=== PATIENT | female | born 1930 | race Hispanic/Latino ===

== ENCOUNTER 2019-03-24 08:34 | Inpatient (IN) | payer MEDICARE, BC ==
[2019-03-24 08:36] VITALS: BMI 29.2
--- NOTE | 2019-03-24 09:11 | ED PDOC ---
Arrival/HPI - General Chief Complaint: Cough, Cold, Congestion Time Seen by Provider: 03/24/19 08:47 Historian: Family - History of Present Illness Narrative History of Present Illness (Text): 03/24/19 09:12 89 year old female, with a Past medical history of Alzheimer's, and COPD, who presents to the emergency department BIB family complaining of cough since last night. Family reports patient did not sleep last night and was coughing all night. Family endorses nebulizer treatment, twice a day. Family endorses diaphoresis. As per family, at baseline, patient has minimal communication. Family reports patient is complaint with medications, but did not take any medications today. Family denies any fever, shortness of breath, vomiting, diarrhea, or any other somatic complaints Time/Duration: 24 hours Symptom Onset: Gradual Symptom Course: Unchanged Activities at Onset: Light Context: Home Past Medical History - Provider Review Nursing Documentation Reviewed: Yes Primary Care Provider: Moe Ellsworth - Infectious Disease Hx of Infectious Diseases: None - Reproductive Menopause: Yes - Cardiac Hx Cardiac Disorders: No - Pulmonary Hx Respiratory Disorders: Yes Hx Chronic Obstructive Pulmonary Disease (COPD): Yes - Neurological Hx Neurological Disorder: Yes Hx Alzheimer's Disease: Yes - HEENT Hx HEENT Disorder: No - Renal Hx Renal Disorder: No - Endocrine/Metabolic Hx Endocrine Disorders: No - Hematological/Oncological Hx Blood Disorders: No - Integumentary Hx Dermatological Disorder: No - Musculoskeletal/Rheumatological Hx Musculoskeletal Disorders: No - Gastrointestinal Hx Gastrointestinal Disorders: No - Genitourinary/Gynecological Hx Genitourinary Disorders: No - Psychiatric Hx Psychophysiologic Disorder: Yes Hx Depression: Yes Hx Emotional Abuse: No Hx Physical Abuse: No Hx Substance Use: No - Surgical History Other/Comment: knee replacement. hip sx. lumbar sx - Anesthesia Hx Anesthesia: Yes Hx Anesthesia Reactions: No Hx Malignant Hyperthermia: No - Suicidal Assessment Feels Threatened In Home Enviroment: No Family/Social History - Physician Review Nursing Documentation Reviewed: Yes Family/Social History: Unknown Family HX Smoking Status: Never Smoked Hx Alcohol Use: No Hx Substance Use: No Hx Substance Use Treatment: No Allergies/Home Meds Allergies/Adverse Reactions: Allergies No Known Allergies Allergy (Verified 03/24/19 12:10) Home Medications: Home Meds Medication Instructions Recorded Confirmed Ascorbic Acid [Vitamin C] 100 mg PO DAILY 03/24/19 03/24/19 Aspirin [Aspirin Chewable] 81 mg PO DAILY 03/24/19 03/24/19 Beta-Carotene(A)-C,E/Selenium 1 cap PO DAILY 03/24/19 03/24/19 [Antioxidant Softgel] Calcium Phosphate Trib/Vit D3 1 each PO DAILY 03/24/19 03/24/19 [Calcium + Vitamin D3 Gummies] Cyanocobalamin (Vitamin B-12) 2,500 mcg PO DAILY 03/24/19 03/24/19 [Vitamin B12] Divalproex [Depakote Sprinkles] 125 mg PO BID 03/24/19 03/24/19 Donepezil [Aricept] 10 mg PO HS 03/24/19 03/24/19 Escitalopram [Lexapro] 20 mg PO HS 03/24/19 03/24/19 Esomeprazole Magnesium [Nexium] 40 mg PO DAILY 03/24/19 03/24/19 Garlic [Garlic Oil] 1,000 mg PO DAILY 03/24/19 03/24/19 Guaifenesin [Mucinex] 1,200 mg PO DAILY 03/24/19 03/24/19 [place]-3S/Dha/Epa/Fish Oil [Natural 1,200 mg PO DAILY 03/24/19 03/24/19 Fish Oil] QUEtiapine [SEROquel] 25 mg PO HS 03/24/19 03/24/19 Ubidecarenone [Coq-10] 200 mg PO DAILY 03/24/19 03/24/19 Zafirlukast [Accolate] 20 mg PO DAILY 03/24/19 03/24/19 Zafirlukast [Accolate] 20 mg PO HS 03/24/19 03/24/19 traMADol [Ultram] 50 mg PO DAILY 03/24/19 03/24/19 traMADol [Ultram] 50 mg PO HS 03/24/19 03/24/19 traZODone [trazodone Hydrochloride] 100 mg PO HS 03/24/19 03/24/19 Review of Systems - Physician Review All systems were reviewed & negative as marked: Yes - Review of Systems Constitutional: absent: Fevers Respiratory: Cough Gastrointestinal: absent: Vomiting Endocrine: Diaphoresis Physical Exam Vital Signs Reviewed: Yes Vital Signs Temp Pulse Resp BP Pulse Ox 03/24/19 08:35 98.5 F 100 H 18 118/50 L 90 L Temperature: Afebrile Blood Pressure: Normal Pulse: Tachycardic Respiratory Rate: Normal Appearance: Positive for: Well-Appearing, Non-Toxic, Comfortable Pain Distress: None Mental Status: Positive for: Alert and Oriented X 3 - Systems Exam Head: Present: Atraumatic, Normocephalic Pupils: Present: PERRL Extroacular Muscles: Present: EOMI Conjunctiva: Present: Normal Mouth: Present: Moist Mucous Membranes Neck: Present: Normal Range of Motion Respiratory/Chest: Present: Clear to Auscultation, Good Air Exchange. No: Respiratory Distress, Accessory Muscle Use Cardiovascular: Present: Regular Rate and Rhythm, Normal S1, S2. No: Murmurs Abdomen: No: Tenderness, Distention, Peritoneal Signs Back: Present: Normal Inspection Upper Extremity: Present: Normal Inspection. No: Cyanosis, Edema Lower Extremity: Present: Normal Inspection. No: Edema Skin: Present: Warm, Dry, Normal Color. No: Rashes Psychiatric: Present: Alert, Oriented x 3, Normal Insight, Normal Concentration Medical Decision Making ED Course and Treatment: 03/24/19 09:08 Impression: 89 year old female presents to the emergency department BIB family complaining of cough since last night. Plan: -- EKG -- Chest X-ray -- Labs -- vbg -- Albuterol -- Decadron -- Urinalysis -- Influenza AB -- Reassess and disposition Prior Visits: Notes and results from previous visits were reviewed. Progress Notes: 03/24/19 10:[address] Clark, Patient will be admitted for COPD exacerbation. - RAD Interpretation Narrative RAD Interpretations (Text): 03/24/19 09:59 Chest x-ray reviewed by radiologist, shows: No active disease 03/24/19 15:38 CT chest reviewed by radiologist, shows: Small bibasilar infiltrates are seen with peribronchial thickening and air bronchograms. Prominent interstitial markings are also seen. Radiology Orders: 03/24/19 08:55 CHEST PORTABLE [RAD] Stat Employee Communications Specialist: Radiologist - Scribe Statement The provider has reviewed the documentation as recorded by the Scribe Ana Hastings All medical record entries made by the Scribe were at my direction and personally dictated by me. I have reviewed the chart and agree that the record accurately reflects my personal performance of the history, physical exam, medical decision making, and the department course for this patient. I have also personally directed, reviewed, and agree with the discharge instructions and disposition. Disposition/Present on Arrival - Present on Arrival Any Indicators Present on Arrival: No History of DVT/PE: No History of Uncontrolled Diabetes: No Urinary Catheter: No History of Decub. Ulcer: No History Surgical Site Infection Following: None - Disposition Have Diagnosis and Disposition been Completed?: Yes Diagnosis: COPD exacerbation, Pneumonia Disposition: HOSPITALIZED Disposition Time: 10:31 Patient Plan: Admission Condition: GUARDED
[2019-03-24] MEDS ORDERED: Dexamethasone 12 MG in Sodium Chloride 0.9% 50 ML IV ONE (09:30)
[2019-03-24] MEDS ORDERED: Albuterol 0.083% Inhal Sol (2.5 mg/3 mL) UD INH STA ×2 (09:40→09:41)
--- NOTE | 2019-03-24 09:57 | RAD ---
Date of service: 03/24/2019 HISTORY: r/o pneumonia COMPARISON: No prior. TECHNIQUE: 1 view obtained. FINDINGS: LUNGS: No active pulmonary disease. Minimal linear atelectasis at the right lung base PLEURA: No significant pleural effusion identified, no pneumothorax apparent. CARDIOVASCULAR: Aortic calcification Mild cardiomegaly. No pulmonary vascular congestion. OSSEOUS STRUCTURES: No significant abnormalities. VISUALIZED UPPER ABDOMEN: Normal. OTHER FINDINGS: None. IMPRESSION: No active disease.
[2019-03-24 10:01] LABS: BASO # 0.02 K/mm3 (0.0-2.0); BASO % 0.1 % (0.0-3.0); EOS % 0.1 % (1.5-5.0); LYMPH # 2.9 (1.2-3.4); LYMPH % 14.5 % (22.0-35.0); MEAN CELL VOLUME 96.2 fl (80.0-105.0); MEAN CORPUSCULAR HEMOGLOBIN 31.2 pg (25.0-35.0); MEAN CORPUSCULAR HGB CONC 32.4 g/dl (31.0-37.0); MEAN PLATELET VOLUME 9.5 fl (7.0-11.0); MONO # 1.6 (0.1-0.6); MONO % 8.2 % (1.0-6.0); RBC 4.17 10^6/uL (3.5-6.1); RED CELL DISTRIBUTION WIDTH 13.3 % (11.5-14.5)
[2019-03-24 10:01] LABS: VENOUS BLOOD GAS BASE EXCESS 8.3 mmol/L (0.0-2.0); VENOUS BLOOD GAS PO2 49 mm/Hg (30-55); VENOUS BLOOD PH 7.44 (7.32-7.43)
[2019-03-24 10:14] LABS: ALB/GLOB RATIO 1.1 (1.1-1.8); ALBUMIN 3.3 g/dL (3.0-4.8); ALT/SGPT 63 U/L (7-56); GFR NON-AFRICAN AMERICAN > 60
[2019-03-24 10:15] LABS: AST/SGOT 35 U/L (14-36); BLOOD UREA NITROGEN 31 mg/dL (7-21)
[2019-03-24 10:25] LABS: B-TYPE NATRIURETIC PEPTIDE 2690 pg/mL (0-450); TROPONIN I 0.07 ng/mL
[2019-03-24] MEDS ORDERED: cefTRIAXone 1 gm 1 GM/100 ML BAG IVPB STA (10:26)
[2019-03-24] MEDS ORDERED: Albuterol-Ipratrop 3 mg / 0.5 (3 ml) UD IH PRN (10:34)
[2019-03-24] MEDS: cefTRIAXone 1 gm 1 GM/100 ML BAG IVPB STA ×2 (10:40→10:52)
[2019-03-24] MEDS ORDERED: Azithromycin 500MG/NS 250ml 500 MG/250 ML BAG IVPB STA (10:42)
--- NOTE | 2019-03-24 10:47 | CP.PCM.HP ---
<Cristhian Silver - Last Filed: 03/24/19 10:40> History of Present Illness - History of Present Illness History of Present Illness: Cristhian Silver D.O. PGY-3, Internal Medicine Resident, Dr. 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 Patient is mostly nonverbal and most of the history is obtained from her primary medical doctor Dr. Ellsworth who is present at bedside as well as her . [employer] also presents to substantiate history. Patient has been having worsening cough and some shortness of breath for about 1 day and was unable to get any sleep last night from the coughing. They apparently tried given the patient some nebulizers but this did not improve much. Patient having coughing during interview. Appears somewhat uncomfortable. They deny any fevers. Otherwise review of system is unobtainable from patient. PMH: As above PSH: Shoulder surgery, back surgery, bilateral knee replacements next SH: No tobacco or drug use, previous social EtOH use FH: Noncontributory Meds: Reviewed Allergies: No known allergies Present on Admission - Present on Admission Any Indicators Present on Admission: No Review of Systems - Review of Systems Systems not reviewed;Unavailable: Dementia Past Patient History - Infectious Disease Hx of Infectious Diseases: None - Past Social History Smoking Status: Never Smoked - CARDIAC Hx Cardiac Disorders: No - PULMONARY Hx Respiratory Disorders: Yes Hx Chronic Obstructive Pulmonary Disease (COPD): Yes - NEUROLOGICAL Hx Neurological Disorder: Yes Hx Alzheimer's Disease: Yes - HEENT Hx HEENT Problems: No - RENAL Hx Chronic Kidney Disease: No - ENDOCRINE/METABOLIC Hx Endocrine Disorders: No - HEMATOLOGICAL/ONCOLOGICAL Hx Blood Disorders: No - INTEGUMENTARY Hx Dermatological Problems: No - MUSCULOSKELETAL/RHEUMATOLOGICAL Hx Musculoskeletal Disorders: No - GASTROINTESTINAL Hx Gastrointestinal Disorders: No - GENITOURINARY/GYNECOLOGICAL Hx Genitourinary Disorders: No - PSYCHIATRIC Hx Psychophysiologic Disorder: Yes Hx Depression: Yes Hx Emotional Abuse: No Hx Physical Abuse: No Hx Substance Use: No - SURGICAL HISTORY Other/Comment: knee replacement. hip sx. lumbar sx - ANESTHESIA Hx Anesthesia: Yes Hx Anesthesia Reactions: No Hx Malignant Hyperthermia: No Meds Allergies/Adverse Reactions: Allergies Allergy/AdvReac Type Severity Reaction Status Date / Time No Known Allergies Allergy Verified 03/24/19 12:10 Physical Exam - Constitutional Appears: Non-toxic Additional comments: elderly, appears to understand - Head Exam Head Exam: ATRAUMATIC, NORMOCEPHALIC - Eye Exam Eye Exam: EOMI. absent: Scleral icterus - ENT Exam ENT Exam: Mucous Membranes Moist, Normal Oropharynx - Respiratory Exam Respiratory Exam: Wheezes. absent: Rales, Rhonchi - Cardiovascular Exam Cardiovascular Exam: RRR, +S1, +S2. absent: Gallop, Rubs - GI/Abdominal Exam GI & Abdominal Exam: Normal Bowel Sounds, Soft. absent: Distended, Tenderness - Extremities Exam Extremities exam: Positive for: normal capillary refill. Negative for: calf tenderness, pedal edema - Neurological Exam Additional comments: awake, alert, follows simple commands, vocalizes, moves all extremities spon taneously - Psychiatric Exam Psychiatric exam: Anxious - Skin Skin Exam: Dry, Warm Results - Vital Signs Recent Vital Signs: Last Vital Signs Temp 98.5 F 03/24/19 08:35 Pulse 100 H 03/24/19 10:26 Resp 20 03/24/19 10:26 BP 127/47 L 03/24/19 10:26 Pulse Ox 100 03/24/19 10:26 - Labs Result Diagrams: 03/24/19 09:38 03/24/19 09:38 Labs: Laboratory Results - last 24 hr 03/24/19 03/24/19 03/24/19 09:38 09:38 09:38 WBC 20.0 H RBC 4.17 Hgb 13.0 Hct 40.1 MCV 96.2 MCH 31.2 MCHC 32.4 RDW 13.3 Plt Count 215 MPV 9.5 Neut % (Auto) 77.1 H Lymph % (Auto) 14.5 L [place] % (Auto) 8.2 H Eos % (Auto) 0.1 L Baso % (Auto) 0.1 Lymph # (Auto) 2.9 [place] # (Auto) 1.6 H Eos # (Auto) 0.0 Baso # (Auto) 0.02 Absolute Neuts (auto) 15.39 H pO2 VBG pH VBG pCO2 VBG HCO3 VBG Total CO2 VBG O2 Sat (Calc) VBG Base Excess VBG Potassium Glucose Lactate FiO2 Sodium 141 Potassium 4.5 Chloride 109 H Carbon Dioxide 29 Anion Gap 8 L BUN 31 H Creatinine 0.7 Est GFR ( Amer) > 60 Est GFR (Non-Af Amer) > 60 Random Glucose 113 H Calcium 9.0 Magnesium 2.3 H Total Bilirubin 0.6 AST 35 ALT 63 H Alkaline Phosphatase 82 Lactate Dehydrogenase 539 Total Creatine Kinase 73 Troponin I 0.07 NT-Pro-B Natriuret Pep 2690 H Total Protein 6.2 Albumin 3.3 Globulin 3.0 Albumin/Globulin Ratio 1.1 Venous Blood Potassium Influenza Typ A,B (EIA) Negative for flu a/b 03/24/19 09:43 WBC RBC Hgb Hct MCV MCH MCHC RDW Plt Count MPV Neut % (Auto) Lymph % (Auto) [place] % (Auto) Eos % (Auto) Baso % (Auto) Lymph # (Auto) [place] # (Auto) Eos # (Auto) Baso # (Auto) Absolute Neuts (auto) pO2 49 VBG pH 7.44 H VBG pCO2 50.0 VBG HCO3 34.0 H VBG Total CO2 35.5 H VBG O2 Sat (Calc) 83.1 H VBG Base Excess 8.3 H VBG Potassium 5.7 H Glucose 113 H Lactate 1.0 FiO2 21.0 Sodium 141.0 Potassium Chloride 107.0 Carbon Dioxide Anion Gap BUN Creatinine Est GFR ( Amer) Est GFR (Non-Af Amer) Random Glucose Calcium Magnesium Total Bilirubin AST ALT Alkaline Phosphatase Lactate Dehydrogenase Total Creatine Kinase Troponin I NT-Pro-B Natriuret Pep Total Protein Albumin Globulin Albumin/Globulin Ratio Venous Blood Potassium 5.7 H Influenza Typ A,B (EIA) Assessment & Plan - Assessment and Plan (Free Text) Assessment: 89-year-old English female with a past medical history of Alzheimer's dementia, asthma, COPD, GERD, substernal goiter, hyperlipidemia, osteoarthritis, osteoporosis, 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 Plan: 1. SIRS with leukocytosis and tachycardia, likely pulmonary source 2. Alzheimer's dementia 3. Asthma/COPD 4. Osteoarthritis 5. GERD Chest x-ray reviewed. Read as no active disease. 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 Difficult to ascertain whether there could be some consolidations particularly in the right lower lobe. Will order a CT without contrast to better elucidate. Family does state that at times she has issues with pills but they deny any aspiration. There is a still however a concern. We will keep the patient on ceftriaxone and azithromycin for presumed likely community-acquired pneumonia versus aspiration pneumonia. For her cough we will give her Robitussin-DM. For her shortness of breath and cough we will also have the patient on scheduled and as needed nebulizer treatments and solu medrol 20q12. For Alzheimer's dementia we will continue the patient's home trazodone, Seroquel, and Lexapro. For her GERD we will continue PPI therapy that she takes at home. For anxiety we will also continue her alprazolam. Discussed the case with Dr. Ellsworth at bedside, her PMD. Also discussed the case with at bedside. Blood cultures were drawn. VBG did not reveal any lactic acidosis. Patient was seen and examined and case to be discussed with attending physician at length. - Date & Time Date: 03/24/19 Time: 10:00 <Deep Clark S - Last Filed: 03/24/19 12:55> Results - Vital Signs Recent Vital Signs: Last Vital Signs Temp 98.5 F 03/24/19 08:35 Pulse 102 H 03/24/19 11:34 Resp 18 03/24/19 11:34 BP 114/82 03/24/19 11:34 Pulse Ox 97 03/24/19 11:34 - Labs Result Diagrams: 03/24/19 09:38 03/24/19 09:38 Labs: Laboratory Results - last 24 hr 03/24/19 03/24/19 03/24/19 09:38 09:38 09:38 WBC 20.0 H RBC 4.17 Hgb 13.0 Hct 40.1 MCV 96.2 MCH 31.2 MCHC 32.4 RDW 13.3 Plt Count 215 MPV 9.5 Neut % (Auto) 77.1 H Lymph % (Auto) 14.5 L [place] % (Auto) 8.2 H Eos % (Auto) 0.1 L Baso % (Auto) 0.1 Lymph # (Auto) 2.9 [place] # (Auto) 1.6 H Eos # (Auto) 0.0 Baso # (Auto) 0.02 Absolute Neuts (auto) 15.39 H pO2 VBG pH VBG pCO2 VBG HCO3 VBG Total CO2 VBG O2 Sat (Calc) VBG Base Excess VBG Potassium Glucose Lactate FiO2 Sodium 141 Potassium 4.5 Chloride 109 H Carbon Dioxide 29 Anion Gap 8 L BUN 31 H Creatinine 0.7 Est GFR ( Amer) > 60 Est GFR (Non-Af Amer) > 60 Random Glucose 113 H Calcium 9.0 Magnesium 2.3 H Total Bilirubin 0.6 AST 35 ALT 63 H Alkaline Phosphatase 82 Lactate Dehydrogenase 539 Total Creatine Kinase 73 Troponin I 0.07 NT-Pro-B Natriuret Pep 2690 H Total Protein 6.2 Albumin 3.3 Globulin 3.0 Albumin/Globulin Ratio 1.1 Venous Blood Potassium Urine Color Urine Appearance Urine pH Ur Specific [place] Urine Protein Urine Glucose (UA) Urine Ketones Urine Blood Urine Nitrate Urine Bilirubin Urine Urobilinogen Ur Leukocyte Esterase Urine RBC Urine WBC Ur Epithelial Cells Amorphous Sediment Urine Bacteria Coarse Granular Casts Urine Other Influenza Typ A,B (EIA) Negative for flu a/b 03/24/19 03/24/19 09:43 11:57 WBC RBC Hgb Hct MCV MCH MCHC RDW Plt Count MPV Neut % (Auto) Lymph % (Auto) [place] % (Auto) Eos % (Auto) Baso % (Auto) Lymph # (Auto) [place] # (Auto) Eos # (Auto) Baso # (Auto) Absolute Neuts (auto) pO2 49 VBG pH 7.44 H VBG pCO2 50.0 VBG HCO3 34.0 H VBG Total CO2 35.5 H VBG O2 Sat (Calc) 83.1 H VBG Base Excess 8.3 H VBG Potassium 5.7 H Glucose 113 H Lactate 1.0 FiO2 21.0 Sodium 141.0 Potassium Chloride 107.0 Carbon Dioxide Anion Gap BUN Creatinine Est GFR ( Amer) Est GFR (Non-Af Amer) Random Glucose Calcium Magnesium Total Bilirubin AST ALT Alkaline Phosphatase Lactate Dehydrogenase Total Creatine Kinase Troponin I NT-Pro-B Natriuret Pep Total Protein Albumin Globulin Albumin/Globulin Ratio Venous Blood Potassium 5.7 H Urine Color Yellow Urine Appearance Clear Urine pH 6.0 Ur Specific [place] >= 1.030 Urine Protein 30 H Urine Glucose (UA) Negative Urine Ketones 15 H Urine Blood Negative Urine Nitrate Negative Urine Bilirubin Negative Urine Urobilinogen 1.0 H Ur Leukocyte Esterase Trace H Urine RBC 0 - 2 Urine WBC 2 - 5 Ur Epithelial Cells 3 - 4 Amorphous Sediment Few Urine Bacteria Many Coarse Granular Casts Trace Urine Other [place] Influenza Typ A,B (EIA) Assessment & Plan - Assessment and Plan (Free Text) Plan: Pt seen and examined by me. I have reviewed the note of the medical director of hospice and I agree with it. I have discussed the assessment and plan with the resident. I have reviewed the medications and the last labs.
[2019-03-24] MEDS ORDERED: Sodium Chloride 0.9% 500 ML IV STA (10:53)
[2019-03-24 12:17] LABS: URINE BILIRUBIN NEGATIVE (NEGATIVE); URINE BLOOD NEGATIVE (NEGATIVE); URINE GLUCOSE (UA) NEGATIVE (NEGATIVE); URINE LEUKOCYTE ESTERASE TRACE Leu/uL (NEGATIVE); URINE PROTEIN 30 mg/dL (<30 mg/dL)
[2019-03-24 12:19] LABS: URINE APPEARANCE CLEAR (CLEAR); URINE COLOR YELLOW (YELLOW)
[2019-03-24 12:39] LABS: URINE AMORPHOUS SEDIMENT FEW /hpf; URINE BACTERIA MANY /hpf; URINE COARSE GRANULAR CAST TRACE /hpf; URINE RBC 0 - 2 /hpf (0-2)
[2019-03-24] MEDS: Albuterol-Ipratrop 3 mg / 0.5 (3 ml) UD IH SCH ×2 (13:31→19:28)
--- NOTE | 2019-03-24 14:57 | CT ---
Date of service: 03/24/2019 PROCEDURE: CT Chest without contrast HISTORY: cough, known goiter, poss PNA COMPARISON: None available. TECHNIQUE: Contiguous axial images were obtained through the chest without intravenous contrast enhancement. Sagittal and coronal reconstructions were performed. Radiation dose: Total exam DLP = 1735.53 mGy-cm. This CT exam was performed using one or more of the following dose reduction techniques: Automated exposure control, adjustment of the mA and/or kV according to patient size, and/or use of iterative reconstruction technique. FINDINGS: LUNGS: . Small bibasilar infiltrates are seen with peribronchial thickening and air bronchograms.Prominent interstitial markings are also seen. MEDIASTINUM: Unremarkable thoracic aorta. No aneurysm. There is a small pericardial effusion. There is mild cardiomegaly. Main pulmonary artery unremarkable. No vascular congestion. No lymphadenopathy. Aortic and coronary artery calcifications PLEURA: No pleural fluid. No pneumothorax. BONES: No fracture. No destructive lesion. UPPER ABDOMEN: Grossly unremarkable. OTHER FINDINGS: None. IMPRESSION: Small bibasilar infiltrates are seen with peribronchial thickening and air bronchograms. Prominent interstitial markings are also seen.
[2019-03-24] MEDS ORDERED: Pneumococcal 23-Valent Vaccine IM ONE (15:26)
--- NOTE | 2019-03-24 16:52 | HP ---
DATE OF EXAM: 03/24/2019 HISTORY OF PRESENT ILLNESS: The patient was seen and examined. I do agree with the note of the medical facilities section director. I was involved in the plan of care. The patient has having a cough with congestion. She was not able to sleep overnight. She is not able to give a history of because of underlying dementia. Most of the information was taken from the patient's family and Dr. Ellsworth was her primary care doctor. The patient had been given steroids and cough medication. The patient was brought in for further evaluation. She had not been improving. PHYSICAL EXAMINATION: VITAL SIGNS: Temperature is 98.5, pulse 100, respirations 20 and blood pressure 127/47. GENERAL: The patient is lying in bed, comfortable, and in no acute distress. HEENT: Atraumatic and normocephalic. Anicteric sclerae. Moist mucosa. [place] conjunctivae. No oral lesions. NECK: No JVD, anterior and posterior adenopathy, thyromegaly, or bruits. CARDIOVASCULAR: S1 and S2 regular. No murmurs, rubs or gallops. LUNGS: Clear to auscultation bilaterally. No wheezes, rales, or rhonchi. ABDOMEN: Bowel sounds are positive. Soft, nontender and nondistended. No hepatosplenomegaly. No rebound and no guarding. EXTREMITIES: No cyanosis, clubbing, or edema. NEUROLOGIC: The patient can move all four extremities as a limited exam. GENITOURINARY: No CVA tenderness. VASCULAR: 2+ pulses in the carotid pulses and pedal pulses. SKIN: No erythema or nodules. SPINE: Shows normal curvature. LABORATORY DATA: White count of 20. Creatinine 0.7. Chest x-ray reviewed, shows bibasilar patchy air space opacities. ASSESSMENT: 1. Systemic inflammatory response syndrome. 2. Bronchitis. 3. Alzheimer's dementia. 4. Chronic obstructive pulmonary disease. 5. Osteoarthritis. 6. Gastroesophageal reflux disease. 7. Goiter. 8. Dyslipidemia. 9. Meningioma of the right parietal region. 10. Adrenal adenoma. PLAN: The patient is going to be admitted to the hospital. We will replaced on IV antibiotics. I did speak to the patient to the ER physician. The patient has been given Zithromax and Rocephin. The patient is confused and agitated. She is going to be on Aricept for her dementia. She is on trazodone at night to help her sleep. The patient is on Lexapro as well. She has been given IV fluids. The patient had a CT of the chest that has been ordered. We will also get Dr. Trujillo for consultation for her bronchitis and cough. She does also have abnormal chest x-ray, but it is chronic in nature according to Dr. Ellsworth. We will need to repeat her blood work. The patient has a known history of goiter. She also is going to get blood cultures. Deep Clark MD
--- NOTE | 2019-03-24 18:20 | CARD ---
APPROVED REPORT Date of service: 03/24/2019 EKG Measurement Heart [id number] <Conclusion> Sinus rhythm with fusion complexes Low voltage QRS Prolonged QT Abnormal ECG
[2019-03-24] MEDS: guaiFENesin DM 200 mg-20 mg/10 ml UD PO PRN ×2 (18:41→23:27)
[2019-03-24] MEDS: Divalproex 125 mg EC Sprinkle Cap PO SCH (18:41)
[2019-03-25] MEDS: Albuterol-Ipratrop 3 mg / 0.5 (3 ml) UD IH SCH ×4 (01:47→20:55)
[2019-03-25 07:37] LABS: HEMOGLOBIN 13.1 g/dL (12.0-16.0); LYMPH # 2.5 (1.2-3.4); LYMPH % 15.3 % (22.0-35.0); MEAN CELL VOLUME 97.2 fl (80.0-105.0); MEAN CORPUSCULAR HGB CONC 31.9 g/dl (31.0-37.0); MEAN PLATELET VOLUME 9.6 fl (7.0-11.0); MONO # 1.4 (0.1-0.6); MONO % 8.9 % (1.0-6.0); RBC 4.23 10^6/uL (3.5-6.1); RED CELL DISTRIBUTION WIDTH 13.5 % (11.5-14.5); WHITE BLOOD COUNT 16.1 10^3/uL (4.5-11.0)
[2019-03-25 08:00] LABS: ALBUMIN 3.4 g/dL (3.0-4.8); ALT/SGPT 57 U/L (7-56); AST/SGOT 47 U/L (14-36); BLOOD UREA NITROGEN 39 mg/dL (7-21); CALCIUM 8.9 mg/dL (8.4-10.5); GFR NON-AFRICAN AMERICAN > 60
[2019-03-25] MEDS: Enoxaparin 40 mg Syringe SC SCH (09:14)
[2019-03-25] MEDS: cefTRIAXone 1 gm 1 GM/100 ML BAG IVPB SCH (09:15)
[2019-03-25] MEDS: Ascorbic Acid 500 mg/5 ml Liq(50 ml) PO SCH (09:15)
[2019-03-25] MEDS: Pantoprazole 40 mg EC Tab PO SCH (09:18)
[2019-03-25] MEDS: Divalproex 125 mg EC Sprinkle Cap PO SCH ×2 (09:18→17:13)
[2019-03-25] MEDS ORDERED: Azithromycin 500MG/NS 250ml 500 MG/250 ML BAG IVPB SCH ×2 (10:00)
[2019-03-25] MEDS ORDERED: MethylPREDNISolone 40 mg Vial IVP SCH (10:00)
[2019-03-25] MEDS ORDERED: cefTRIAXone 1 gm 1 GM/100 ML BAG IVPB SCH (10:00)
--- NOTE | 2019-03-25 11:21 | CP.PCM.PN ---
<Cristhian Sliver - Last Filed: 03/25/19 11:15> Subjective - Date & Time of Evaluation Date of Evaluation: 03/25/19 Time of Evaluation: 07:30 - Subjective Subjective: Cristhian Silver D.O. PGY-3, Internal Medicine Resident, Dr. 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 Patient was seen and evaluated at bedside. Patient continues to be minimally verbal but appears much more awake, alert and interactive. Asking for water in Serbian. Objective - Vital Signs/Intake and Output Vital Signs (last 24 hours): Temp Pulse Resp BP Pulse Ox 97.4 F L 112 H 18 120/80 96 03/25/19 06:00 03/25/19 06:00 03/25/19 06:00 03/25/19 06:00 03/25/19 06:00 Intake and Output: 03/25/19 03/25/19 06:59 18:59 Intake Total 360 Balance 360 - Medications Medications: Current Medications Albuterol/Ipratropium (Duoneb 3 Mg/0.5 Mg (3 Ml) Ud) 3 ml IH [id number] [facility] Last Admin: 03/25/19 09:39 Dose: 3 ml Albuterol/Ipratropium (Duoneb 3 Mg/0.5 Mg (3 Ml) Ud) 3 ml IH Q2H PRN PRN Reason: Shortness of Breath Alprazolam (Xanax) 0.5 mg PO DAILY [facility] Last Admin: 03/25/19 09:19 Dose: 0.5 mg Ascorbic Acid (Vitamin C Liq) 100 mg PO DAILY [facility] Last Admin: 03/25/19 09:15 Dose: 100 mg Aspirin (Aspirin Chewable) 81 mg PO DAILY [facility] Last Admin: 03/25/19 09:18 Dose: 81 mg Divalproex Sodium (Depakote Sprinkles) 125 mg PO BID [facility]; Protocol Last Admin: 03/25/19 09:18 Dose: 125 mg Donepezil HCl (Aricept) [address] [facility] Last Admin: 03/24/19 21:45 Dose: 10 mg Enoxaparin Sodium (Lovenox) 40 mg SC DAILY [facility]; Protocol Last Admin: 03/25/19 09:14 Dose: 40 mg Escitalopram Oxalate (Lexapro) 10 mg PO DAILY [facility] Last Admin: 03/25/19 09:18 Dose: 10 mg Guaifenesin/Dextromethorphan (Robitussin Dm) 10 ml PO Q4H PRN PRN Reason: Cough Last Admin: 03/24/19 23:27 Dose: 10 ml Ceftriaxone Sodium (Rocephin 1 Gram Ivpb) 1 gm in 100 mls @ 100 mls/hr IVPB DAILY [facility]; Protocol Last Admin: 03/25/19 09:15 Dose: 100 mls/hr Azithromycin (Zithromax 500mg In Ns) 500 mg in 250 mls @ 167 mls/hr IVPB DAILY [facility]; Protocol Last Admin: 03/25/19 09:16 Dose: 167 mls/hr Methylprednisolone (Solu-Medrol) 20 mg IVP Q12 [facility] Last Admin: 03/25/19 09:16 Dose: 20 mg Pantoprazole Sodium (Protonix Ec Tab) 40 mg PO 0630 [facility] Last Admin: 03/25/19 09:18 Dose: 40 mg Quetiapine Fumarate (Seroquel) 25 mg PO BID [facility]; Protocol Last Admin: 03/25/19 09:18 Dose: 25 mg Tramadol HCl (Ultram) 50 mg PO DAILY [facility] Last Admin: 03/25/19 09:18 Dose: 50 mg Tramadol HCl (Ultram) [address] [facility] Last Admin: 03/24/19 21:45 Dose: 50 mg Trazodone HCl (Desyrel) [address] [facility] Last Admin: 03/24/19 21:45 Dose: 50 mg - Labs Labs: 03/25/19 06:00 03/25/19 06:00 - Constitutional Appears: elderly Serbian female in NAD - Head Exam Head Exam: ATRAUMATIC, NORMOCEPHALIC - Eye Exam Eye Exam: EOMI. absent: Scleral icterus - ENT Exam ENT Exam: Mucous Membranes Moist, Normal Oropharynx - Respiratory Exam Respiratory Exam: mild wheezing, mild right base rhonchi - Cardiovascular Exam Cardiovascular Exam: +S1, +S2. absent: Gallop, Rubs - GI/Abdominal Exam GI & Abdominal Exam: Normal Bowel Sounds, Soft. absent: Distended, Tenderness - Extremities Exam Extremities exam: Positive for: normal capillary refill. Negative for: calf tenderness, pedal edema - Neurological Exam Additional comments: awake, alert, follows simple commands - Skin Skin Exam: Dry, Warm Assessment and Plan - Assessment and Plan (Free Text) Assessment: 89-year-old Serbian female with a past medical history of Alzheimer's dementia, asthma, COPD, GERD, substernal goiter, hyperlipidemia, osteoarthritis, osteoporosis, meningioma in the right parietal region, adrenal adenomas, and bilateral knee replacements who presents for complaints of cough, found to have pneumonia. Plan: 1. Sepsis 2/2 CAP 2. Alzheimer's dementia 3. Asthma/COPD 4. Osteoarthritis 5. GERD CT was performed to better elucidate given her chest x-ray findings and show small bibasilar infiltrates which are seen with peribronchial thickening and air bronchograms, are prominent and suspicion markings are also seen. Patient's leukocytosis is downtrending. She has not had any fevers. She continues on azithromycin and ceftriaxone. For her dementia and anxiety the patient is currently doing well on her home regimen of alprazolam, divalproex, donepezil, Lexapro, Seroquel, and trazodone for sleep. For her respiratory symptoms she is currently on Solu-Medrol 20 every 12 which we will switch to 20 daily. Clinically the patient appears much better. Pending pulmonology evaluation. Infectious disease will also be consulted for this patient now. For osteoarthritis her pain appears to be well controlled on her home regimen of tramadol in the morning and at night. For history of GERD we continued her home PPI therapy. For her cough we have also added Robitussin-DM. For DVT prophylaxis we will give the patient Lovenox 40. Blood cultures have returned 2/2 on day 1. We will continue to monitor clinical status closely. Patient was seen and examined and case to be discussed with attending physician at length. <Deep Clark - Last Filed: 03/25/19 16:07> Objective - Vital Signs/Intake and Output Vital Signs (last 24 hours): Temp Pulse Resp BP Pulse Ox 98 F 103 H 20 105/70 97 03/25/19 14:00 03/25/19 14:00 03/25/19 14:00 03/25/19 14:00 03/25/19 14:00 Intake and Output: 03/25/19 03/25/19 06:59 18:59 Intake Total 360 Balance 360 - Medications Medications: Current Medications Albuterol/Ipratropium (Duoneb 3 Mg/0.5 Mg (3 Ml) Ud) 3 ml IH [id number] [facility] Last Admin: 03/25/19 13:49 Dose: 3 ml Albuterol/Ipratropium (Duoneb 3 Mg/0.5 Mg (3 Ml) Ud) 3 ml IH Q2H PRN PRN Reason: Shortness of Breath Alprazolam (Xanax) 0.5 mg PO DAILY [facility] Last Admin: 03/25/19 09:19 Dose: 0.5 mg Ascorbic Acid (Vitamin C Liq) 100 mg PO DAILY [facility] Last Admin: 03/25/19 09:15 Dose: 100 mg Aspirin (Aspirin Chewable) 81 mg PO DAILY [facility] Last Admin: 03/25/19 09:18 Dose: 81 mg Divalproex Sodium (Depakote Sprinkles) 125 mg PO BID [facility]; Protocol Last Admin: 03/25/19 09:18 Dose: 125 mg Donepezil HCl (Aricept) 10 mg PO HS [facility] Last Admin: 03/24/19 21:45 Dose: 10 mg Doxycycline Hyclate (Doryx) 100 mg PO Q12 [facility]; Protocol Stop: 03/30/19 22:01 Enoxaparin Sodium (Lovenox) 40 mg SC DAILY [facility]; Protocol Last Admin: 03/25/19 09:14 Dose: 40 mg Escitalopram Oxalate (Lexapro) 10 mg PO DAILY [facility] Last Admin: 03/25/19 09:18 Dose: 10 mg Guaifenesin/Dextromethorphan (Robitussin Dm) 10 ml PO Q4H PRN PRN Reason: Cough Last Admin: 03/25/19 13:12 Dose: 10 ml Ceftriaxone Sodium (Rocephin 1 Gram Ivpb) 1 gm in 100 mls @ 100 mls/hr IVPB DAILY [facility]; Protocol Last Admin: 03/25/19 09:15 Dose: 100 mls/hr Methylprednisolone (Solu-Medrol) 20 mg IVP DAILY [facility] Pantoprazole Sodium (Protonix Ec Tab) 40 mg PO 0630 [facility] Last Admin: 03/25/19 09:18 Dose: 40 mg Quetiapine Fumarate (Seroquel) 25 mg PO BID [facility]; Protocol Last Admin: 03/25/19 09:18 Dose: 25 mg Tramadol HCl (Ultram) 50 mg PO DAILY [facility] Last Admin: 03/25/19 09:18 Dose: 50 mg Tramadol HCl (Ultram) 50 mg PO HS [facility] Last Admin: 03/24/19 21:45 Dose: 50 mg Trazodone HCl (Desyrel) 50 mg PO HS [facility] Last Admin: 03/24/19 21:45 Dose: 50 mg - Labs Labs: 03/25/19 06:00 03/25/19 06:00 Assessment and Plan - Assessment and Plan (Free Text) Plan: Pt seen and examined by me. I have reviewed the note of the medical receptionist medical assistant and I agree with it. I have discussed the assessment and plan with the resident. I have reviewed the medications and the last labs.
[2019-03-25] MEDS: guaiFENesin DM 200 mg-20 mg/10 ml UD PO PRN ×2 (13:12→21:26)
--- NOTE | 2019-03-25 19:26 | PN ---
DATE: 03/25/2019 SUBJECTIVE: The patient was seen and examined. I do agree with the note of the medical staff credentialing coordinator. I was involved in the plan of care. The patient has been admitted to the hospital because of sepsis. She has been on IV antibiotics with Rocephin and Zithromax. Her white cell count is improving. The patient had a scan that showed bibasilar infiltrates. The patient most likely has a community acquired pneumonia causing the sepsis. She does have dementia and she had delirium yesterday, this is improving. She is more awake and alert and able to answer questions. I did speak to Dr. Ellsworth, who was at the bedside, which is the primary doctor of this patient. I also spoke with the patient's son at bedside later on today. The patient is on Solu-Medrol, a low dose. She is on Lovenox for DVT prophylaxis. Physical therapy has been ordered. The patient has blood cultures that were done. Blood cultures preliminary are negative. She is also going to be followed by Dr. Mahmood from Infectious Disease, I did speak to him about the case. The patent is currently on aspirin. She will continue on this. She is on Aricept for her dementia. She is receiving Depakote, this will be continued as well. She is on Lexapro for her depression. She is on Protonix for her GERD. She has urine cultures that are pending. Deep Clark MD
[2019-03-26] MEDS: Albuterol-Ipratrop 3 mg / 0.5 (3 ml) UD IH SCH ×4 (02:33→20:10)
[2019-03-26] MEDS: guaiFENesin DM 200 mg-20 mg/10 ml UD PO PRN ×3 (05:07→21:34)
[2019-03-26] MEDS: Pantoprazole 40 mg EC Tab PO SCH (06:56)
--- NOTE | 2019-03-26 08:07 | CP.PCM.PN ---
<Cristhian Silver - Last Filed: 03/26/19 10:26> Subjective - Date & Time of Evaluation Date of Evaluation: 03/26/19 Time of Evaluation: 05:00 - Subjective Subjective: Cristhian Silver D.O. PGY-3, Internal Medicine Resident, Dr. Clark's Service, Progress Note 89-year-old [place]ar[place] female with a past medical history of Alzheimer's dementia, asthma, COPD, GERD, substernal goiter, hyperlipidemia, osteoarthritis, osteoporosis, meningioma in the right parietal region, adrenal adenomas, and bilateral knee replacements who presents for complaints of cough, found to have pneumonia. Patient was seen and evaluated at bedside. Appears comfortable. No acute overnight events. Objective - Vital Signs/Intake and Output Vital Signs (last 24 hours): Temp Pulse Resp BP Pulse Ox 98.4 F 93 H 18 127/82 97 03/26/19 06:00 03/26/19 06:00 03/26/19 06:00 03/26/19 06:00 03/26/19 06:00 - Medications Medications: Current Medications Albuterol/Ipratropium (Duoneb 3 Mg/0.5 Mg (3 Ml) Ud) 3 ml IH [id number] [facility] Last Admin: 03/26/19 07:44 Dose: 3 ml Albuterol/Ipratropium (Duoneb 3 Mg/0.5 Mg (3 Ml) Ud) 3 ml IH Q2H PRN PRN Reason: Shortness of Breath Alprazolam (Xanax) 0.5 mg PO DAILY [facility] Last Admin: 03/25/19 09:19 Dose: 0.5 mg Ascorbic Acid (Vitamin C Liq) 100 mg PO DAILY [facility] Last Admin: 03/25/19 09:15 Dose: 100 mg Aspirin (Aspirin Chewable) 81 mg PO DAILY [facility] Last Admin: 03/25/19 09:18 Dose: 81 mg Divalproex Sodium (Depakote Sprinkles) 125 mg PO BID [facility]; Protocol Last Admin: 03/25/19 17:13 Dose: 125 mg Donepezil HCl (Aricept) 10 mg PO HS [facility] Last Admin: 03/25/19 21:25 Dose: 10 mg Doxycycline Hyclate (Doryx) 100 mg PO Q12 [facility]; Protocol Stop: 03/30/19 22:01 Last Admin: 03/25/19 21:25 Dose: 100 mg Enoxaparin Sodium (Lovenox) 40 mg SC DAILY [facility]; Protocol Last Admin: 03/25/19 09:14 Dose: 40 mg Escitalopram Oxalate (Lexapro) 10 mg PO DAILY [facility] Last Admin: 03/25/19 09:18 Dose: 10 mg Guaifenesin/Dextromethorphan (Robitussin Dm) 10 ml PO Q4H PRN PRN Reason: Cough Last Admin: 03/26/19 05:07 Dose: 10 ml Ceftriaxone Sodium (Rocephin 1 Gram Ivpb) 1 gm in 100 mls @ 100 mls/hr IVPB DAILY [facility]; Protocol Last Admin: 03/25/19 09:15 Dose: 100 mls/hr Methylprednisolone (Solu-Medrol) 20 mg IVP DAILY [facility] Pantoprazole Sodium (Protonix Susp) 40 mg PO 0600 [facility] Quetiapine Fumarate (Seroquel) 25 mg PO BID [facility]; Protocol Last Admin: 03/25/19 17:13 Dose: 25 mg Tramadol HCl (Ultram) 50 mg PO DAILY [facility] Last Admin: 03/25/19 09:18 Dose: 50 mg Tramadol HCl (Ultram) 50 mg PO HS [facility] Last Admin: 03/25/19 21:24 Dose: 50 mg Trazodone HCl (Desyrel) 50 mg PO HS [facility] Last Admin: 03/25/19 21:25 Dose: 50 mg - Labs Labs: 03/25/19 06:00 03/25/19 06:00 - Constitutional Appears: elderly [place]arag[place] female in NAD - Head Exam Head Exam: ATRAUMATIC, NORMOCEPHALIC - Eye Exam Eye Exam: EOMI. absent: Scleral icterus - ENT Exam ENT Exam: Mucous Membranes Moist, Normal Oropharynx - Respiratory Exam Respiratory Exam: mild wheezing, mild right base rhonchi - Cardiovascular Exam Cardiovascular Exam: +S1, +S2. absent: Gallop, Rubs - GI/Abdominal Exam GI & Abdominal Exam: Normal Bowel Sounds, Soft. absent: Distended, Tenderness - Extremities Exam Extremities exam: Positive for: normal capillary refill. Negative for: calf tenderness, pedal edema - Neurological Exam Additional comments: awake, alert, follows simple commands - Skin Skin Exam: Dry, Warm Assessment and Plan - Assessment and Plan (Free Text) Assessment: 89-year-old [place] female with a past medical history of Alzheimer's dementia, asthma, COPD, GERD, substernal goiter, hyperlipidemia, osteoarthritis, osteoporosis, meningioma in the right parietal region, adrenal adenomas, and bilateral knee replacements who presents for complaints of cough, found to have sepsis from pneumonia. Plan: 1. Sepsis 2/2 CAP 2. Alzheimer's dementia 3. Asthma/COPD 4. Osteoarthritis 5. GERD Clinically improving. Infectious disease was consulted, the recommendations are appreciated. Azithromycin was discontinued and patient is now on ceftriaxone and doxycycline per ID recs. Has been afebrile. Blood cultures / day 1. Sputum culture and Legionella antigen ordered by ID pending. Procal came back low. ID has also ordered an abdomen and pelvis CAT scan to make sure that there is no GI pathology. For her dementia and anxiety patient is continued on her home alprazolam, donepezil, Lexapro, divalproex, Seroquel, and trazodone. Patient will be switched to prednisone from IV Solu-Medrol. Pulmonology has been consulted. For osteoarthritis she appears to be comfortable on her home tramadol. For her GERD she is currently on Protonix. Cough is well controlled with Robitussin-DM. For DVT prophylaxis the patient is on Lovenox 40. PT has been consulted, recommendations for ZOFIA. Will discuss with CM/SW upon their return. Continue to monitor clinical improvement. Patient was seen and examined and case was discussed with attending physician at length. <Deep Clark - Last Filed: 03/26/19 14:28> Objective - Vital Signs/Intake and Output Vital Signs (last 24 hours): Temp Pulse Resp BP Pulse Ox 98.0 F 112 H 18 146/86 97 03/26/19 14:00 03/26/19 14:00 03/26/19 14:00 03/26/19 14:00 03/26/19 14:00 - Medications Medications: Current Medications Albuterol/Ipratropium (Duoneb 3 Mg/0.5 Mg (3 Ml) Ud) 3 ml IH [id number] [facility] Last Admin: 03/26/19 07:44 Dose: 3 ml Albuterol/Ipratropium (Duoneb 3 Mg/0.5 Mg (3 Ml) Ud) 3 ml IH Q2H PRN PRN Reason: Shortness of Breath Alprazolam (Xanax) 0.5 mg PO DAILY [facility] Last Admin: 03/26/19 09:06 Dose: 0.5 mg Ascorbic Acid (Vitamin C Liq) 100 mg PO DAILY [facility] Last Admin: 03/25/19 09:15 Dose: 100 mg Aspirin (Aspirin Chewable) 81 mg PO DAILY [facility] Last Admin: 03/26/19 09:06 Dose: 81 mg Divalproex Sodium (Depakote Sprinkles) 125 mg PO BID [facility]; Protocol Last Admin: 03/26/19 09:06 Dose: 125 mg Donepezil HCl (Aricept) 10 mg PO HS [facility] Last Admin: 03/25/19 21:25 Dose: 10 mg Doxycycline Hyclate (Doryx) 100 mg PO Q12 [facility]; Protocol Stop: 03/30/19 22:01 Last Admin: 03/26/19 09:06 Dose: 100 mg Enoxaparin Sodium (Lovenox) 40 mg SC DAILY [facility]; Protocol Last Admin: 03/26/19 09:05 Dose: 40 mg Escitalopram Oxalate (Lexapro) 10 mg PO DAILY [facility] Last Admin: 03/26/19 09:06 Dose: 10 mg Guaifenesin/Dextromethorphan (Robitussin Dm) 10 ml PO Q4H PRN PRN Reason: Cough Last Admin: 03/26/19 05:07 Dose: 10 ml Ceftriaxone Sodium (Rocephin 1 Gram Ivpb) 1 gm in 100 mls @ 100 mls/hr IVPB DAILY [facility]; Protocol Last Admin: 03/26/19 09:05 Dose: 100 mls/hr Metronidazole (Flagyl) 500 mg PO Q8 [facility]; Protocol Stop: 04/03/19 14:01 Last Admin: 03/26/19 14:20 Dose: 500 mg Pantoprazole Sodium (Protonix Susp) 40 mg PO 0600 [facility] Prednisone (Prednisone Tab) 20 mg PO DAILY [facility] Quetiapine Fumarate (Seroquel) 25 mg PO BID [facility]; Protocol Last Admin: 03/26/19 09:07 Dose: 25 mg Tramadol HCl (Ultram) 50 mg PO DAILY [facility] Last Admin: 03/26/19 09:05 Dose: 50 mg Tramadol HCl (Ultram) 50 mg PO HS [facility] Last Admin: 03/25/19 21:24 Dose: 50 mg Trazodone HCl (Desyrel) 50 mg PO HS [facility] Last Admin: 03/25/19 21:25 Dose: 50 mg - Labs Labs: 03/26/19 10:40 03/25/19 06:00 Assessment and Plan - Assessment and Plan (Free Text) Plan: Pt seen and examined by me. I have reviewed the note of the medical technologist prn and I agree with it. I have discussed the assessment and plan with the resident. I have reviewed the medications and the last labs.
[2019-03-26] MEDS ORDERED: Barium Sulfate Susp 2.1% w/v, 2.0% w/w 450 mL Bottle PO ONE (08:53)
[2019-03-26] MEDS: cefTRIAXone 1 gm 1 GM/100 ML BAG IVPB SCH (09:05)
[2019-03-26] MEDS: Enoxaparin 40 mg Syringe SC SCH (09:05)
[2019-03-26] MEDS: Divalproex 125 mg EC Sprinkle Cap PO SCH ×2 (09:06→17:14)
[2019-03-26] MEDS: Ascorbic Acid 500 mg/5 ml Liq(50 ml) PO SCH (09:21)
[2019-03-26] MEDS ORDERED: MethylPREDNISolone 40 mg Vial IVP SCH (10:00)
[2019-03-26 10:53] LABS: HEMOGLOBIN 12.6 g/dL (12.0-16.0); MEAN CELL VOLUME 99.2 fl (80.0-105.0); MEAN CORPUSCULAR HGB CONC 32.2 g/dl (31.0-37.0); MEAN PLATELET VOLUME 9.6 fl (7.0-11.0); RBC 3.94 10^6/uL (3.5-6.1); RED CELL DISTRIBUTION WIDTH 13.6 % (11.5-14.5); WHITE BLOOD COUNT 15.5 10^3/uL (4.5-11.0)
--- NOTE | 2019-03-26 13:57 | CT ---
Date of service: 03/26/2019 PROCEDURE: CT Abdomen and Pelvis without intravenous contrast HISTORY: r/o gi path COMPARISON: None. TECHNIQUE: Contiguous images were obtained from the domes of the diaphragms to the upper thighs without the administration of intravenous contrast. Oral contrast was not administered. Radiation dose: Total exam DLP = 942.5 mGy-cm. This CT exam was performed using one or more of the following dose reduction techniques: Automated exposure control, adjustment of the mA and/or kV according to patient size, and/or use of iterative reconstruction technique. FINDINGS: LOWER THORAX: Left lower lobe consolidation. Trace bilateral pleural effusions. LIVER: Unremarkable. No gross lesion or ductal dilatation. GALLBLADDER AND BILE DUCTS: Unremarkable. PANCREAS: Unremarkable. No gross lesion or ductal dilatation. SPLEEN: Unremarkable. ADRENALS: Unremarkable. No mass. KIDNEYS AND URETERS: 4.1 cm right upper pole cyst. 2.1 cm left interpolar cyst. No hydronephrosis. No solid mass. VASCULATURE: Unremarkable. No aortic aneurysm. Aortic atherosclerotic calcifications. BOWEL: Prominent amount of retained colonic stool. No obstruction. No gross mural thickening. APPENDIX: No findings to suggest acute appendicitis. PERITONEUM: Unremarkable. No free fluid. No free air. LYMPH NODES: Unremarkable. No enlarged lymph nodes. BLADDER: Unremarkable. REPRODUCTIVE: Unremarkable. BONES: Prior L2 and L3 vertebral augmentation. Multilevel spinal degenerative changes. Age-indeterminate compression fracture of L4 and T11.. OTHER FINDINGS: None. IMPRESSION: Age-indeterminate vertebral compression fractures of T11 and L4. Prominent amount of retained colonic stool. Left lower lobe infiltrate. Trace bilateral pleural effusions.
--- NOTE | 2019-03-26 14:45 | PN ---
DATE: 03/26/2019 SUBJECTIVE: The patient is in seen earlier today. She appears to be doing better. Her family is here and Dr. Ellsworth, the patient's primary doctor in the office setting is also there. Dr. Velasquez, the patient's doctor in the hospital setting is also here. There have been no fevers reported. PHYSICAL EXAMINATION: VITAL SIGNS: Temperature is 98, heart rate of 103, blood pressure is 113/60, respiratory rate of 20. HEENT: Unremarkable. NECK: Supple. LUNGS: Have decreased breath sounds. HEART: Normal S1, S2. ABDOMEN: Soft, nontender. LABORATORY DATA: Laboratory examination reveals a white count is down to 15,500, hemoglobin of 12. Chemistries are noted. Procalcitonin 0.07, AST is 47, ALT of 57. The BNP is 2690. Urinalysis is noted. Serology is noted. Influenza blood cultures are negative. Urine cultures are negative. ASSESSMENT AND PLAN: This is an 89-year-old female who is admitted with history of Alzheimer's dementia, asthma, chronic obstructive pulmonary disease, gastroesophageal reflux disease with sepsis secondary to community-acquired pneumonia. I am concerned about GI pathology with a white count of 20,000. We will order a CAT scan of the abdomen and pelvis to rule out diverticular disease and we will continue with the cefepime. We will add Flagyl and continue doxycycline with the Flagyl. The patient is now on prednisone. Initially upon admission, the patient was not on steroids and still had a white count of 20,000. I reviewed the CAT scan of the chest. I do not feel this CAT scan has enough of pneumonia to explain the 20,000 white count. We will check on the CT of the abdomen and pelvis. We will follow with you. Kip Mahmood MD
[2019-03-26] MEDS: POLYETHYLENE GLYCOL 3350 17 GM/Dose PACKET PO SCH (17:14)
--- NOTE | 2019-03-26 19:30 | PN ---
DATE: 03/26/2019 SUBJECTIVE: The patient was seen and examined. I do agree with the note of the medical office professional instructor. I was involved in the plan of care. The patient is clinically improving. Her procalcitonin level is low. The patient has sepsis secondary to community-acquired pneumonia. She had a CT of the abdomen and pelvis that was done that showed a left lower lobe infiltrate. There was age-related indeterminate vertebral compression fracture at T11 and L4. She had a prominent amount of retained stool. The patient is being treated with IV antibiotics. She is going to be on donepezil for her dementia. She is on steroids for her asthma. She is on Lovenox for DVT prophylaxis. She has osteoarthritis and currently her pain is controlled. I did speak to Dr. Ellsworth, her primary care doctor. I also spoke with the patient's son at the bedside to give him an update on the patient's diagnosis and plan of care. The patient is currently on doxycycline, has Flagyl that has been added. I did speak to the infectious disease doctor, Dr. Mahmood. The patient is on Lovenox for DVT prophylaxis. The patient is on tramadol for pain. She is getting Xanax for agitation. Her delirium has improved from when she first came into the ER. She has blood cultures and urine cultures that are negative. The patient has a compression fracture of L4 and T11. She also has constipation. I will add MiraLax to her regimen. Deep Clark MD
[2019-03-27] MEDS: Albuterol-Ipratrop 3 mg / 0.5 (3 ml) UD IH SCH ×4 (02:30→20:10)
[2019-03-27] MEDS: Pantoprazole 40 mg Susp UD PO SCH (05:36)
[2019-03-27 07:08] LABS: BASO # 0.01 K/mm3 (0.0-2.0); BASO % 0.1 % (0.0-3.0); EOS # 0.1 (0.0-0.7); EOS % 0.7 % (1.5-5.0); HEMOGLOBIN 11.4 g/dL (12.0-16.0); LYMPH # 2.8 (1.2-3.4); LYMPH % 26.7 % (22.0-35.0); MEAN CELL VOLUME 97.6 fl (80.0-105.0); MEAN CORPUSCULAR HEMOGLOBIN 30.3 pg (25.0-35.0); MEAN CORPUSCULAR HGB CONC 31.1 g/dl (31.0-37.0); MEAN PLATELET VOLUME 9.5 fl (7.0-11.0); MONO # 1.1 (0.1-0.6); MONO % 10.3 % (1.0-6.0); RBC 3.76 10^6/uL (3.5-6.1); RED CELL DISTRIBUTION WIDTH 13.5 % (11.5-14.5); WHITE BLOOD COUNT 10.5 10^3/uL (4.5-11.0)
[2019-03-27 07:53] LABS: ALB/GLOB RATIO 0.9 (1.1-1.8); ALBUMIN 2.9 g/dL (3.0-4.8); ALT/SGPT 41 U/L (7-56); AST/SGOT 36 U/L (14-36); BLOOD UREA NITROGEN 31 mg/dL (7-21); CALCIUM 8.5 mg/dL (8.4-10.5); GFR NON-AFRICAN AMERICAN > 60
[2019-03-27] MEDS: cefTRIAXone 1 gm 1 GM/100 ML BAG IVPB SCH (09:20)
[2019-03-27] MEDS: POLYETHYLENE GLYCOL 3350 17 GM/Dose PACKET PO SCH ×2 (09:21→17:25)
[2019-03-27] MEDS: Enoxaparin 40 mg Syringe SC SCH (09:21)
[2019-03-27] MEDS: Ascorbic Acid 500 mg/5 ml Liq(50 ml) PO SCH (09:22)
[2019-03-27] MEDS: Divalproex 125 mg EC Sprinkle Cap PO SCH ×2 (09:23→17:25)
--- NOTE | 2019-03-27 10:11 | PN ---
DATE: 03/27/2019 SUBJECTIVE: The patient is seen earlier this morning in room 561, bed 1. She is at her baseline now. She is afebrile. PHYSICAL EXAMINATION: VITAL SIGNS: On exam, temperature is 97, blood pressure is 140/80, respiratory rate of 20. HEENT: Unremarkable. NECK: Supple. HEART: Normal S1, S2. LUNGS: Have decreased breath sounds. ABDOMEN: Soft and nontender. LABORATORY DATA: Reveals a white count of 10,000, hemoglobin of 11, platelets of 219. Chemistries reveals a BUN of 31, creatinine of 0.6. Procalcitonin 0.07. Urinalysis is noted. Serology is noted. CT of the abdomen and pelvis is reviewed. EKG shows a QTc of 505. The patient's procalcitonin is negative. CURRENT MEDICATIONS: Reveals the patient to be on doxycycline. Since the CAT scan of the abdomen and pelvis is negative, we will discontinue the Flagyl. The patient is also on prednisone and the patient is also on ceftriaxone. Blood cultures are negative. Urine cultures are negative. ASSESSMENT AND PLAN: This is an 89-year-old female admitted with sepsis with community-acquired pneumonia which is resolved and upon discharge may discontinue the ceftriaxone and complete 5 to 7 days of p.o. doxycycline. Currently day #3 of antibiotics. The patient's QTc is over quinolone. Kip Mahmood MD
[2019-03-27] MEDS: guaiFENesin DM 200 mg-20 mg/10 ml UD PO PRN ×2 (10:18→17:25)
--- NOTE | 2019-03-27 12:38 | CP.PCM.PN ---
<Cristhian Silver - Last Filed: 03/27/19 12:32> Subjective - Date & Time of Evaluation Date of Evaluation: 03/27/19 Time of Evaluation: 07:50 - Subjective Subjective: Cristhian Silver D.O. PGY-3, Internal Medicine Resident, Dr. 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 Patient was seen and evaluated at bedside with multiple family members and PMD present. She is mostly nonverbal but appears at her baseline. Responsive and appears improved. Objective - Vital Signs/Intake and Output Vital Signs (last 24 hours): Temp Pulse Resp BP Pulse Ox 98.2 F 83 18 138/70 95 03/27/19 06:00 03/27/19 06:00 03/27/19 06:00 03/27/19 06:00 03/27/19 06:00 - Medications Medications: Current Medications Albuterol/Ipratropium (Duoneb 3 Mg/0.5 Mg (3 Ml) Ud) 3 ml IH [id number] [facility] Last Admin: 03/27/19 07:15 Dose: 3 ml Albuterol/Ipratropium (Duoneb 3 Mg/0.5 Mg (3 Ml) Ud) 3 ml IH Q2H PRN PRN Reason: Shortness of Breath Alprazolam (Xanax) 0.5 mg PO DAILY [facility] Last Admin: 03/27/19 09:23 Dose: 0.5 mg Ascorbic Acid (Vitamin C Liq) 100 mg PO DAILY [facility] Last Admin: 03/27/19 09:22 Dose: 100 mg Aspirin (Aspirin Chewable) 81 mg PO DAILY [facility] Last Admin: 03/27/19 09:23 Dose: 81 mg Divalproex Sodium (Depakote Sprinkles) 125 mg PO BID [facility]; Protocol Last Admin: 03/27/19 09:23 Dose: 125 mg Donepezil HCl (Aricept) 10 mg PO HS [facility] Last Admin: 03/26/19 21:32 Dose: 10 mg Doxycycline Hyclate (Doryx) 100 mg PO Q12 [facility]; Protocol Stop: 03/30/19 22:01 Last Admin: 03/27/19 09:22 Dose: 100 mg Enoxaparin Sodium (Lovenox) 40 mg SC DAILY [facility]; Protocol Last Admin: 03/27/19 09:21 Dose: 40 mg Escitalopram Oxalate (Lexapro) 10 mg PO DAILY [facility] Last Admin: 03/27/19 09:21 Dose: 10 mg Guaifenesin/Dextromethorphan (Robitussin Dm) 10 ml PO Q4H PRN PRN Reason: Cough Last Admin: 03/27/19 10:18 Dose: 10 ml Ceftriaxone Sodium (Rocephin 1 Gram Ivpb) 1 gm in 100 mls @ 100 mls/hr IVPB DAILY [facility]; Protocol Last Admin: 03/27/19 09:20 Dose: 100 mls/hr Pantoprazole Sodium (Protonix Susp) 40 mg PO 0600 [facility] Last Admin: 03/27/19 05:36 Dose: 40 mg Polyethylene Glycol (Miralax) 17 gm PO BID [facility] Last Admin: 03/27/19 09:21 Dose: 17 gm Quetiapine Fumarate (Seroquel) 25 mg PO BID [facility]; Protocol Last Admin: 03/27/19 09:22 Dose: 25 mg Tramadol HCl (Ultram) 50 mg PO DAILY [facility] Last Admin: 03/27/19 09:22 Dose: 50 mg Tramadol HCl (Ultram) 50 mg PO [facility] Last Admin: 03/26/19 21:31 Dose: 50 mg Trazodone HCl (Desyrel) 50 mg PO [facility] Last Admin: 03/26/19 21:31 Dose: 50 mg - Labs Labs: 03/27/19 06:00 03/27/19 06:00 - Constitutional Appears: elderly [place] female in [facility] surrounded by family members - Head Exam Head Exam: ATRAUMATIC, NORMOCEPHALIC - Eye Exam Eye Exam: EOMI. absent: Scleral icterus - ENT Exam ENT Exam: Mucous Membranes Moist, Normal Oropharynx - Respiratory Exam Respiratory Exam: mild right base rhonchi, no wheezing - Cardiovascular Exam Cardiovascular Exam: +S1, +S2. absent: Gallop, Rubs - GI/Abdominal Exam GI & Abdominal Exam: Normal Bowel Sounds, Soft. absent: Distended, Tenderness - Extremities Exam Extremities exam: Positive for: normal capillary refill. Negative for: calf tenderness, pedal edema - Neurological Exam Additional comments: awake, alert, follows simple commands, seems more responsive when spoken to in [place] - Skin Skin Exam: Dry, Warm Assessment and Plan - Assessment and Plan (Free Text) Assessment: 89-year-old [place] female with a past medical history of Alzheimer's dementia, asthma, COPD, GERD, substernal goiter, hyperlipidemia, osteoarthritis, osteoporosis, meningioma in the right parietal region, adrenal adenomas, and bilateral knee replacements who presents for complaints of cough, found to have sepsis from pneumonia. Plan: 1. Sepsis 2/2 CAP 2. Alzheimer's dementia 3. Asthma/COPD 4. Osteoarthritis 5. GERD Currently on day 3 of ceftriaxone and doxycycline. ID is following and the recommendations have been reviewed and appreciated. CT of the abdomen and pelvis did not appear to show any gastrointestinal infectious etiology and so Flagyl has been discontinued. Her leukocytosis has resolved and the patient has not had any fevers. Blood cultures have been negative 2/2 on day 3. Urine culture was negative. For dementia and anxiety patient continues on her home donepezil, Lexapro, divalproex, alprazolam, Seroquel, and trazodone. For her COPD she is doing much better at this time we will discontinue prednisone. Continue with guaifenesin/dextromethorphan. For her osteoarthritis she is currently on tramadol. Her GERD is well controlled with Protonix. She cont inues on Lovenox 40 for prophylaxis against DVT. Physical therapy evaluated the patient and appears to be recommending subacute rehab. TCU evaluation requested. Will discuss with case management and social work tomorrow when they return. Patient was seen and examined and case was discussed with attending physician at length. <Deep Clark - Last Filed: 03/27/19 15:57> Objective - Vital Signs/Intake and Output Vital Signs (last 24 hours): Temp Pulse Resp BP Pulse Ox 98.2 F 83 18 138/70 95 03/27/19 06:00 03/27/19 06:00 03/27/19 06:00 03/27/19 06:00 03/27/19 06:00 - Medications Medications: Current Medications Albuterol/Ipratropium (Duoneb 3 Mg/0.5 Mg (3 Ml) Ud) 3 ml IH [id number] [facility] Last Admin: 03/27/19 13:48 Dose: 3 ml Albuterol/Ipratropium (Duoneb 3 Mg/0.5 Mg (3 Ml) Ud) 3 ml IH Q2H PRN PRN Reason: Shortness of Breath Alprazolam (Xanax) 0.5 mg PO DAILY [facility] Last Admin: 03/27/19 09:23 Dose: 0.5 mg Ascorbic Acid (Vitamin C Liq) 100 mg PO DAILY [facility] Last Admin: 03/27/19 09:22 Dose: 100 mg Aspirin (Aspirin Chewable) 81 mg PO DAILY [facility] Last Admin: 03/27/19 09:23 Dose: 81 mg Divalproex Sodium (Depakote Sprinkles) 125 mg PO BID [facility]; Protocol Last Admin: 03/27/19 09:23 Dose: 125 mg Donepezil HCl (Aricept) 10 mg PO HS [facility] Last Admin: 03/26/19 21:32 Dose: 10 mg Doxycycline Hyclate (Doryx) 100 mg PO Q12 [facility]; Protocol Stop: 03/30/19 22:01 Last Admin: 03/27/19 09:22 Dose: 100 mg Enoxaparin Sodium (Lovenox) 40 mg SC DAILY [facility]; Protocol Last Admin: 03/27/19 09:21 Dose: 40 mg Escitalopram Oxalate (Lexapro) 10 mg PO DAILY [facility] Last Admin: 03/27/19 09:21 Dose: 10 mg Guaifenesin/Dextromethorphan (Robitussin Dm) 10 ml PO Q4H PRN PRN Reason: Cough Last Admin: 03/27/19 10:18 Dose: 10 ml Ceftriaxone Sodium (Rocephin 1 Gram Ivpb) 1 gm in 100 mls @ 100 mls/hr IVPB DAILY [facility]; Protocol Last Admin: 03/27/19 09:20 Dose: 100 mls/hr Pantoprazole Sodium (Protonix Susp) 40 mg PO 0600 [facility] Last Admin: 03/27/19 05:36 Dose: 40 mg Polyethylene Glycol (Miralax) 17 gm PO BID [facility] Last Admin: 03/27/19 09:21 Dose: 17 gm Quetiapine Fumarate (Seroquel) 25 mg PO BID [facility]; Protocol Last Admin: 03/27/19 09:22 Dose: 25 mg Tramadol HCl (Ultram) 50 mg PO DAILY [facility] Last Admin: 03/27/19 09:22 Dose: 50 mg Tramadol HCl (Ultram) 50 mg PO HS [facility] Last Admin: 03/26/19 21:31 Dose: 50 mg Trazodone HCl (Desyrel) 50 mg PO HS [facility] Last Admin: 03/26/19 21:31 Dose: 50 mg - Labs Labs: 03/27/19 06:00 03/27/19 06:00 Assessment and Plan - Assessment and Plan (Free Text) Plan: Pt seen and examined by me. I have reviewed the note of the medical device sales representative and I agree with it. I have discussed the assessment and plan with the resident. I have reviewed the medications and the last labs.
--- NOTE | 2019-03-27 15:36 | PN ---
DATE: 03/27/2019 PULMONARY PROGRESS NOTE SUBJECTIVE: The patient was seen and examined at bedside. She answers some simple question and follows commands otherwise. She appears confused. PHYSICAL EXAMINATION: VITAL SIGNS: Her temperature is 98.2, pulse 84, respirations 18, pulse oximetry is 95% on room air. HEENT: Head is normocephalic and atraumatic. NECK: Supple. There is no jugular vein distention. CARDIOVASCULAR: S1 and S2. No S3. Regular. PULMONARY: Diminished breath sounds at both bases but no rhonchi, rales, or wheezing. GASTROINTESTINAL: Soft and nontender. No organomegaly. : Within normal limits EXTREMITIES: No pedal edema. No cyanosis. SKIN: No acute skin rash. NEUROLOGIC: Limited at the present time. ASSESSMENT AND PLAN: Elderly female with severe Alzheimer's disease, admitted with sepsis and community-acquired pneumonia. The pneumonia is not apparent on the latest chest x-ray. Agree with switch from intravenous antibiotics to oral doxycycline. Her status is otherwise stable. I reviewed today's blood work. Her hemoglobin is 11 and WBC is 10,000. The rest is within normal range. Kee Laguna MD [facility]
--- NOTE | 2019-03-27 20:28 | PN ---
DATE: 03/27/2019 SUBJECTIVE: The patient was seen and examined. I do agree with the note of the medical technician. I was involved in the plan of care. The patient has sepsis and is currently on ceftriaxone and doxycycline. The patient has Alzheimer's dementia and she is stable. Her delirium has improved. She is on Xanax for her agitation as well as Seroquel. She is on trazodone for sleeping. The patient has COPD and is on steroids; this will be discontinued. She medications. She is on tramadol for osteoarthritis. She is on Lovenox for DVT prophylaxis. We will get TCU evaluation done to see if she qualifies. I did speak to the patient's son as well as Dr. Ellsworth to update them. The patient had a CAT scan done yesterday and no significant abnormalities. I did start the patient on MiraLax for constipation. She is also on Aricept for her dementia. Deep Clark MD
[2019-03-28] MEDS: Albuterol-Ipratrop 3 mg / 0.5 (3 ml) UD IH SCH ×2 (01:13→07:18)
[2019-03-28] MEDS: Pantoprazole 40 mg Susp UD PO SCH (05:14)
--- NOTE | 2019-03-28 06:33 | CON ---
DATE: 03/25/2019 LOCATION: The patient was seen in 561, bed 1. CHIEF COMPLAINT: Cold and congestion times several days. HISTORY OF PRESENT ILLNESS: This is an 89-year-old female with a history of Alzheimer's and a history of chronic obstructive lung disease, who is admitted to the emergency room by family members, complaining of cough since last night. Family reports that the patient did not sleep at all and has been coughing and diffusely there has been mild diaphoresis, but no fevers have been documented. Mild shortness of breath. No abdominal pain, diarrhea, or constipation. REVIEW OF SYSTEMS: Review of the 12-point review of systems is performed. PAST MEDICAL HISTORY: Significant for Alzheimer's dementia, chronic obstructive lung disease, osteoarthritis, goiter, GERD, dyslipidemia, meningioma of right parietal region, and an adrenal adenoma. PAST SURGICAL HISTORY: Noncontributory. ALLERGIES: THE PATIENT HAS NO KNOWN ALLERGIES. EMERGENCY ROOM CHART: Reviewed, written by . Dr. Morrow's progress note is also reviewed. Dr. Clark's history and physical examination is also reviewed. The patient had a CAT scan of the chest, which showed bibasilar infiltrates with air bronchogram. LABORATORY EXAMINATION: Shows a white count of 20,000 and hemoglobin of 13. Chemistries are noted. BUN of 31 and creatinine of 0.7. BNP is 2690. LFTs are elevated. Urinalysis is noted. Influenza is negative. Throat culture showed no growth. ASSESSMENT AND PLAN: This is an 89-year-old female with, 1. Sepsis secondary to community-acquired pneumonia, currently being treated with ceftriaxone and azithromycin, pending blood culture, sputum culture, nasal methicillin-resistant Staphylococcus aureus screen, and we will also check on the procalcitonin and urine Legionella antigen. Overall prognosis is poor for this 89-year-old female. We will discontinue the Zithromax and use doxycycline because of a prolonged QTc of 505 and pending initial workup results. Kip Mahmood MD
--- NOTE | 2019-03-28 08:52 | CON ---
DATE: 03/25/2019 PULMONARY CONSULTATION HISTORY OF PRESENT ILLNESS: We were asked by Dr. Clark, talent development manager to evaluate and treat this 89-year-old [place] female, who was admitted to [facility] with chief complaint of shortness of breath, also cough. History is difficult to obtain due to her baseline dementia. I have spoken to Dr. Clark as well as Dr. Ellsworth, who is her primary care physician. PAST MEDICAL HISTORY: Positive for Alzheimer's dementia, bronchial asthma, COPD, GERD, substernal goiter, hyperlipidemia, osteoarthritis, and osteoporosis. The patient is mostly nonverbal; however, she nods and follows simple commands. The additional history is that she was having worsening cough and shortness of breath for about two days prior to admission, and she was unable to sleep due to cough. No acute shortness of breath during the examination. PAST SURGICAL HISTORY: Shoulder surgery, back surgery, and bilateral knee replacements. HABITS: Nonsmoker, nondrinker, never used illicit drugs. FAMILY HISTORY: No history of inherited diseases. MEDICATIONS: Reviewed per MAR. ALLERGIES: NO KNOWN ALLERGIES. REVIEW OF SYSTEMS: Conducted by reviewing all sources. PULMONARY: As mentioned above per HPI. CARDIOVASCULAR: No history of significant cardiovascular problems. INFECTIOUS DISEASE: No history of recent travel or contacts with people with infectious diseases. GASTROINTESTINAL: No history of nausea, vomiting, or diarrhea. The rest of the systems were reviewed and found to be negative. PHYSICAL EXAMINATION: GENERAL: She is awake, in no acute distress. VITAL SIGNS: Temperature 98.5, pulse 96, respirations 20, blood pressure 127/47, and pulse oximetry is 100% on nasal cannula. HEENT: Examination of head; normocephalic and atraumatic. NECK: Supple with no jugular vein distention. CARDIOVASCULAR: S1 and S2. No S3, regular. PULMONARY: Coarse rhonchi at both lung bases and few expiratory wheezes. GASTROINTESTINAL: Soft and nontender. No organomegaly. : Within normal limits EXTREMITIES: No pedal edema. No cyanosis. SKIN: Clear with no acute skin rashes. NEUROLOGIC: No focal deficits. LABORATORY DATA: WBCs elevated to 20,000, hemoglobin is 13, hematocrit 40, and platelet count 215,000. Electrolytes are normal except for slight elevation of BUN to 31. Chest x-ray demonstrates chronic changes and superimposed on chronic changes. There are some bibasilar airspace opacities, atelectasis versus pneumonia. ASSESSMENT: 1. Bilateral pneumonia. 2. Exacerbation of chronic obstructive pulmonary disease. 3. Leukocytosis. 4. Alzheimer's dementia. PLAN: The patient was started on intravenous antibiotics. CT chest was ordered by Dr. Clark. She was started on azithromycin and ceftriaxone for presumed community-acquired pneumonia. There is no clear history of aspiration, so specific anaerobic coverage is not necessary at this point. I have discussed this with Dr. Clark and Dr. Ellsworth. We will follow closely. Kee Laguna MD MTDD
[2019-03-28] MEDS: POLYETHYLENE GLYCOL 3350 17 GM/Dose PACKET PO SCH ×2 (09:32→17:23)
[2019-03-28] MEDS: Enoxaparin 40 mg Syringe SC SCH (09:38)
[2019-03-28] MEDS: guaiFENesin DM 200 mg-20 mg/10 ml UD PO PRN (09:38)
[2019-03-28] MEDS: cefTRIAXone 1 gm 1 GM/100 ML BAG IVPB SCH (09:39)
[2019-03-28] MEDS ORDERED: Metoprolol 1 mg/ml Inj IVP ONE (10:10)
[2019-03-28] MEDS: Divalproex 125 mg EC Sprinkle Cap PO SCH ×2 (10:21→17:21)
[2019-03-28] MEDS ORDERED: Heparin25000 units/250ml 1/2NS 25,000 UNITS/250 ML BAG IV PRN (11:09)
--- NOTE | 2019-03-28 11:21 | CP.PCM.PCO ---
Additional Comments - Additional Comments Additional Comments: Called to examine pt with HR of 130s. Pt c/o midsternal chest pain. Initial EKG showed sinus tachycardia. During administration of Metoprolol 5mg IVP, HR was re-assessed and was found to be irregular. Repeat EKG showed a-fib. D/W Dr. Clark, ordered to dc Lovenox, start Heparin gtt. Cardio consult with Dr. Caraballo. D/W Dr. Caraballo and ok to start Heparin and Cardizem drip. Pt to transfer to tele. Will continue to monitor.
[2019-03-28] MEDS ORDERED: diltiaZEM IVPB 100mg in NS 100 ML IV PRN (11:25)
--- NOTE | 2019-03-28 12:01 | CP.PCM.PN ---
<Cristhian Silver - Last Filed: 03/28/19 11:47> Subjective - Date & Time of Evaluation Date of Evaluation: 03/28/19 Time of Evaluation: 07:30 - Subjective Subjective: Cristhian Silver D.O. PGY-3, Internal Medicine Resident, Dr. 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 Patient was seen and evaluated at bedside. Comfortable and in no distress. Later re-assessed, patient having worsening tachycardia. States having chest pain. Objective - Vital Signs/Intake and Output Vital Signs (last 24 hours): Temp Pulse Resp BP Pulse Ox 97.8 F 147 H 18 109/59 L 94 L 03/28/19 06:00 03/28/19 10:58 03/28/19 10:58 03/28/19 10:58 03/28/19 10:58 Intake and Output: 03/28/19 03/28/19 06:59 18:59 Intake Total 360 Balance 360 - Medications Medications: Current Medications Albuterol/Ipratropium (Duoneb 3 Mg/0.5 Mg (3 Ml) Ud) 3 ml IH [id number] [facility] Last Admin: 03/28/19 07:18 Dose: 3 ml Albuterol/Ipratropium (Duoneb 3 Mg/0.5 Mg (3 Ml) Ud) 3 ml IH Q2H PRN PRN Reason: Shortness of Breath Alprazolam (Xanax) 0.5 mg PO DAILY [facility] Last Admin: 03/28/19 09:39 Dose: 0.5 mg Ascorbic Acid (Vitamin C Liq) 100 mg PO DAILY [facility] Last Admin: 03/27/19 09:22 Dose: 100 mg Aspirin (Aspirin Chewable) 81 mg PO DAILY [facility] Last Admin: 03/28/19 09:39 Dose: 81 mg Divalproex Sodium (Depakote Sprinkles) 125 mg PO BID [facility]; Protocol Last Admin: 03/28/19 10:21 Dose: 125 mg Donepezil HCl (Aricept) 10 mg PO HS [facility] Last Admin: 03/27/19 21:35 Dose: 10 mg Doxycycline Hyclate (Doryx) 100 mg PO Q12 [facility]; Protocol Stop: 03/30/19 22:01 Last Admin: 03/28/19 09:39 Dose: 100 mg Escitalopram Oxalate (Lexapro) 10 mg PO DAILY [facility] Last Admin: 03/28/19 09:40 Dose: 10 mg Guaifenesin/Dextromethorphan (Robitussin Dm) 10 ml PO Q4H PRN PRN Reason: Cough Last Admin: 03/28/19 09:38 Dose: 10 ml Ceftriaxone Sodium (Rocephin 1 Gram Ivpb) 1 gm in 100 mls @ 100 mls/hr IVPB DAILY [facility]; Protocol Last Admin: 03/28/19 09:39 Dose: 100 mls/hr Heparin Sodium/Sodium Chloride (Heparin 21791 Units/250ml 1/2 Normal Saline) 25,000 units in 250 mls @ 13.472 mls/hr IV .[id number] PRN; Protocol PRN Reason: ADJUST RATE PER PROTOCOL diltiaZEM IVPB 100mg in NS (Cardizem 100mg In Ns) 100 mls @ 5 mls/hr IV .Q20H PRN; Protocol PRN Reason: TITRATE PER MD ORDER Pantoprazole Sodium (Protonix Susp) 40 mg PO 0600 [facility] Last Admin: 03/28/19 05:14 Dose: 40 mg Polyethylene Glycol (Miralax) 17 gm PO BID [facility] Last Admin: 03/28/19 09:32 Dose: Not Given Quetiapine Fumarate (Seroquel) 25 mg PO BID [facility]; Protocol Last Admin: 03/28/19 09:39 Dose: 25 mg Tramadol HCl (Ultram) 50 mg PO DAILY [facility] Last Admin: 03/28/19 09:40 Dose: 50 mg Tramadol HCl (Ultram) 50 mg PO HS [facility] Last Admin: 03/27/19 21:36 Dose: 50 mg Trazodone HCl (Desyrel) 50 mg PO HS [facility] Last Admin: 03/27/19 22:00 Dose: 50 mg - Labs Labs: 03/27/19 06:00 03/27/19 06:00 - Constitutional Appears: elderly Micronesian female - Head Exam Head Exam: ATRAUMATIC, NORMOCEPHALIC - Eye Exam Eye Exam: EOMI. absent: Scleral icterus - ENT Exam ENT Exam: Mucous Membranes Moist, Normal Oropharynx - Respiratory Exam Respiratory Exam: improving right base rhonchi, no wheezing - Cardiovascular Exam Cardiovascular Exam: Irregularly irregular rhythm, tachycardic, +S1, +S2. absent: Gallop, Rubs - GI/Abdominal Exam GI & Abdominal Exam: Normal Bowel Sounds, Soft. absent: Distended, Tenderness - Extremities Exam Extremities exam: Positive for: normal capillary refill. Negative for: calf tenderness, pedal edema - Neurological Exam Additional comments: awake, alert, follows simple commands, seems more responsive when spoken to in Micronesian - Skin Skin Exam: Dry, Warm Assessment and Plan - Assessment and Plan (Free Text) Assessment: 89-year-old Micronesian female with a past medical history of Alzheimer's dementia, asthma, COPD, GERD, substernal goiter, hyperlipidemia, osteoarthritis, osteoporosis, meningioma in the right parietal region, adrenal adenomas, and bilateral knee replacements who presents for complaints of cough, found to have sepsis from pneumonia. Plan: 1. Sepsis 2/2 CAP 2. New onset atrial fibrillation with rapid ventricular response 3. Alzheimer's dementia 4. Asthma/COPD 5. Osteoarthritis 6. GERD Patient found to have new onset atrial fibrillation with rapid ventricular response. Metoprolol 5 mg IV push given once. First EKG was reviewed and showed sinus tachycardia but on examination her rhythm was noted to be irregular. Second EKG was ordered and did show the A. fib with RVR. Discussed with MAINTENANCE LEADER. Call placed to Dr. Snell. Patient will be discontinued from Lovenox and started on heparin drip as well as a Cardizem drip. First troponin ordered was negative. Will reevaluate the patient once she is transferred to telemetry. Currently on day 4 of ceftriaxone doxycycline. ID following, recommendations reviewed and appreciated. Leukocytosis resolved. Afebrile. Blood cultures are negative 2/2 on day 4. For her Alzheimer's dementia and anxiety she is doing well with donepezil, Lexapro, Valtrex, alprazolam, Seroquel, trazodone. Currently not having any wheezing on prednisone and she continues on scheduled and as needed breathing treatments for her COPD. Appears comfortable, will continue with tramadol for osteoarthritis. She continues on Protonix for her GERD. Physical therapy is recommending subacute rehab and case management has discussed this with the family. We will continue to monitor closely. Patient was seen and examined and case was discussed with attending physician at length. <Deep Clark S - Last Filed: 03/28/19 14:48> Objective - Vital Signs/Intake and Output Vital Signs (last 24 hours): Temp Pulse Resp BP Pulse Ox 98.6 F 78 15 98/58 L 96 03/28/19 11:50 03/28/19 14:14 03/28/19 11:50 03/28/19 14:14 03/28/19 11:50 Intake and Output: 03/28/19 03/28/19 06:59 18:59 Intake Total 360 10 Balance 360 10 - Medications Medications: Current Medications Alprazolam (Xanax) 0.5 mg PO DAILY [facility] Last Admin: 03/28/19 09:39 Dose: 0.5 mg Ascorbic Acid (Vitamin C Liq) 100 mg PO DAILY [facility] Last Admin: 03/28/19 12:14 Dose: Not Given Aspirin (Aspirin Chewable) 81 mg PO DAILY [facility] Last Admin: 03/28/19 09:39 Dose: 81 mg Atenolol (Tenormin) 25 mg PO BID [facility] Digoxin (Lanoxin) 0.25 mg IVP ONCE ONE Stop: 03/28/19 16:01 Divalproex Sodium (Depakote Sprinkles) 125 mg PO BID [facility]; Protocol Last Admin: 03/28/19 10:21 Dose: 125 mg Donepezil HCl (Aricept) 10 mg PO HS [facility] Last Admin: 03/27/19 21:35 Dose: 10 mg Doxycycline Hyclate (Doryx) 100 mg PO Q12 [facility]; Protocol Stop: 03/30/19 22:01 Last Admin: 03/28/19 09:39 Dose: 100 mg Enoxaparin Sodium (Lovenox) 70 mg SC Q12H [facility]; Protocol Escitalopram Oxalate (Lexapro) 10 mg PO DAILY [facility] Last Admin: 03/28/19 09:40 Dose: 10 mg Guaifenesin/Dextromethorphan (Robitussin Dm) 10 ml PO Q4H PRN PRN Reason: Cough Last Admin: 03/28/19 09:38 Dose: 10 ml Ceftriaxone Sodium (Rocephin 1 Gram Ivpb) 1 gm in 100 mls @ 100 mls/hr IVPB DAILY [facility]; Protocol Last Admin: 03/28/19 09:39 Dose: 100 mls/hr diltiaZEM IVPB 100mg in NS (Cardizem 100mg In Ns) 100 mls @ 5 mls/hr IV .Q20H PRN; Protocol PRN Reason: TITRATE PER MD ORDER Last Titration: 03/28/19 14:12 Dose: 0 mg/hr, 0 mls/hr Levalbuterol HCl (Xopenex) 0.63 mg IH [id number] PRN PRN Reason: Shortness of Breath Pantoprazole Sodium (Protonix Susp) 40 mg PO 0600 [facility] Last Admin: 03/28/19 05:14 Dose: 40 mg Polyethylene Glycol (Miralax) 17 gm PO BID [facility] Last Admin: 03/28/19 09:32 Dose: Not Given Quetiapine Fumarate (Seroquel) 25 mg PO BID [facility]; Protocol Last Admin: 03/28/19 09:39 Dose: 25 mg Tramadol HCl (Ultram) 50 mg PO DAILY [facility] Last Admin: 03/28/19 09:40 Dose: 50 mg Tramadol HCl (Ultram) 50 mg PO HS [facility] Last Admin: 03/27/19 21:36 Dose: 50 mg Trazodone HCl (Desyrel) 50 mg PO HS [facility] Last Admin: 03/27/19 22:00 Dose: 50 mg Verapamil HCl (Verapamil Inj) 2.5 mg IVP Q6H PRN PRN Reason: for heartrate >140 - Labs Labs: 03/27/19 06:00 03/27/19 06:00 Assessment and Plan - Assessment and Plan (Free Text) Plan: Patient was seen and examined by me. I have reviewed the note of the medical laboratory technologist and have gone over the plan of care. I agree with the note. I have reviewed the medications and the last labs.
[2019-03-28] MEDS: Ascorbic Acid 500 mg/5 ml Liq(50 ml) PO SCH (12:14)
[2019-03-28] MEDS ORDERED: Digoxin 500 mcg/2ml (0.5 mg/2ml) Inj IVP ONE ×2 (12:33→16:00)
[2019-03-28] MEDS ORDERED: Enoxaparin 30 mg Syringe SC STA (12:37)
[2019-03-28] MEDS ORDERED: Levalbuterol 0.63 MG/3 ML Inhal Soln UD IH PRN (12:41)
[2019-03-28 17:22] VITALS: PULSE 76
--- NOTE | 2019-03-28 17:38 | CARD ---
APPROVED REPORT Date of service: 03/28/2019 EKG Measurement Heart [id number] <Conclusion> Atrial fibrillation with rapid ventricular response Nonspecific ST-T changes Abnormal ECG
--- NOTE | 2019-03-28 17:40 | CARD ---
APPROVED REPORT Date of service: 03/28/2019 EKG Measurement Heart [id number] <Conclusion> Sinus tachycardia Otherwise normal ECG
--- NOTE | 2019-03-28 19:34 | PN ---
DATE: 03/28/2019 SUBJECTIVE: The patient was seen and examined. I do agree with the note of the medical pathology teacher. I was involved in the plan of care. The patient had sepsis. The patient had some community-acquired pneumonia, she has been receiving IV antibiotics, she is improving. The patient is on Rocephin and doxycycline. She also developed new onset of atrial fibrillation this morning. She had EKG and is going to get Cardiology consultation. The patient is on donepezil for her dementia. She is on Lexapro for anxiety. She is on Tylenol for her pain. The patient has been getting physical therapy. She is going to need either transitional care unit or subacute rehab. She will be transferred to telemetry. She gets monitoring for her atrial fibrillation. She will also need IV heparin for anticoagulation. Deep Clark MD
[2019-03-28] MEDS: Enoxaparin 80 mg Syringe SC SCH (22:24)
[2019-03-29] MEDS: guaiFENesin DM 200 mg-20 mg/10 ml UD PO PRN (00:06)
[2019-03-29 07:06] LABS: ALB/GLOB RATIO 0.9 (1.1-1.8); ALBUMIN 3.1 g/dL (3.0-4.8); ALT/SGPT 72 U/L (7-56); AST/SGOT 74 U/L (14-36); BLOOD UREA NITROGEN 29 mg/dL (7-21); GFR NON-AFRICAN AMERICAN > 60; HDL CHOLESTEROL 50 mg/dL (29-60)
[2019-03-29 07:07] LABS: BASO # 0.02 K/mm3 (0.0-2.0); BASO % 0.2 % (0.0-3.0); EOS # 0.2 (0.0-0.7); HEMOGLOBIN 13.6 g/dL (12.0-16.0); LYMPH # 3.1 (1.2-3.4); LYMPH % 29.3 % (22.0-35.0); MEAN CELL VOLUME 97.5 fl (80.0-105.0); MEAN CORPUSCULAR HEMOGLOBIN 30.8 pg (25.0-35.0); MEAN CORPUSCULAR HGB CONC 31.6 g/dl (31.0-37.0); MEAN PLATELET VOLUME 9.6 fl (7.0-11.0); MONO # 0.9 (0.1-0.6); MONO % 8.5 % (1.0-6.0); RBC 4.41 10^6/uL (3.5-6.1); RED CELL DISTRIBUTION WIDTH 13.2 % (11.5-14.5); WHITE BLOOD COUNT 10.7 10^3/uL (4.5-11.0)
[2019-03-29 07:16] LABS: LDL CHOLESTEROL 110 mg/dL (0-129)
[2019-03-29 07:21] LABS: FREE T4 2.09 ng/dL (0.78-2.19)
--- NOTE | 2019-03-29 07:42 | PN ---
DATE: 03/29/2019 SUBJECTIVE: The patient appears comfortable this morning. She is not short of breath at rest. PHYSICAL EXAMINATION: VITAL SIGNS: Temperature is 97.9, pulse 79, respirations 19, blood pressure 98/48. Oxygen saturation on nasal cannula 96% to 98%. HEENT: Normocephalic, atraumatic.. No JVD. CARDIOVASCULAR: Systolic ejection murmur at the lower left sternal border. No S3 gallop. LUNGS: Minimal crackles at both bases. Mild bilateral rhonchi. No wheezing. EXTREMITIES: Mild edema, no cyanosis, no clubbing. Calves are nontender to palpation. GASTROINTESTINAL: Abdomen is soft, nontender, nondistended. Bowel sounds are positive. SKIN: No acute rash. NEUROLOGIC: Exam limited at the present time. IMPRESSION: 1. Community-acquired pneumonia. 2. Chronic obstructive pulmonary disease 3. Asthma 4. Atrial fibrillation. 5. Mild anemia PLAN: The patient appears comfortable this morning. She is not short of breath at rest. She is coughing a little bit more. On physical exam, there is a mild increase in bronchospasm. However, there is no significant alveolar arterial gradient. I will start the patient on Brovana and inhaled Pulmicort this morning. I would continue with the antibiotic coverage as per Infectious Disease. Input by Dr. Mahmood is noted. There are no temperatures noted. The leukocytosis has resolved. I would continue with the treatment for the arrhythmias as per Cardiology. Input by Dr. Valdez is noted. Clinical status of the patient is certainly improved - compared to the initial presentation. However, given the above, the future status/prognosis for this elderly patient does remain guarded. I will discuss the above with the attending physician. Yoan Trujillo MD MTDNestor
--- NOTE | 2019-03-29 07:57 | PN ---
DATE: 03/29/2019 SUBJECTIVE: The patient is in bed, in no acute distress, nontoxic, comfortable. PHYSICAL EXAMINATION: VITAL SIGNS: Temperature is 97, blood pressure is 98/40, respiratory of 18. HEENT: Unremarkable. NECK: Supple. LUNGS: Have decreased breath sounds. HEART: Normal S1, S2. ABDOMEN: Soft, nontender. Review of orders reveals the patient to be on ceftriaxone and doxycycline. LABORATORY DATA: Laboratory examination reveals a white count is 10,000. Chemistries are noted. The cultures are negative and procalcitonin is negative. ASSESSMENT AND PLAN: This is an 89-year-old female, admitted with sepsis with community-acquired pneumonia which is improved, today is day #5 of antibiotics, may discontinue ceftriaxone after today's dose and complete with 5 to 7 days of doxycycline, today is day #5 of 5 to 7 days. Kip Mahmood MD
--- NOTE | 2019-03-29 08:08 | CON ---
DATE: 03/28/2019 REASON FOR CONSULTATION AND FOLLOWUP: New onset of atrial fibrillation, initially admitted with bronchitis type of symptoms. 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 Today, the patient's heart rate was fast. EKG was done and found to be in atrial fibrillation, so cardiac consult was called. The patient has a baseline dementia and denies any chest pain, shortness of breath, or any palpitation. PAST MEDICAL HISTORY: As mentioned, being followed by Dr. Ellsworth, history of Alzheimer's disease, history of chronic obstructive pulmonary disease, history of osteoarthritis, history of gastroesophageal reflux, history of substernal goiter, and hyperlipidemia. PAST SURGICAL HISTORY: Significant for meningioma of the right parietal lobe and adrenal adenoma. Significant for shoulder surgery, back surgery, and bilateral knee replacement. FAMILY HISTORY: Noncontributory. SOCIAL HISTORY: Denies any smoking. Denies any history of alcohol abuse. REVIEW OF SYSTEMS: As per HPI. CURRENT MEDICATIONS: The patient is taking at home; Lexapro, Depakote, trazodone, Aricept, tramadol, and Seroquel. PHYSICAL EXAMINATION: As follows; GENERAL: Height of the patient 5 feet 3 inches; weight of the patient 165 pounds, and body mass index 29.2 kg/m2. VITAL SIGNS: Temperature afebrile, heart rate 147, and blood pressure 109/59. HEENT: PERRLA. Extraocular muscles intact. NECK: Supple. No carotid bruits or thyromegaly. CHEST: Clear to auscultation. HEART: S1 and S2 regular. ABDOMEN: Soft. EXTREMITIES: Clubbing and cyanosis negative. LABORATORY DATA: Blood workup; WBC 10.5, hemoglobin 11.5, hematocrit 36.7, and platelet count 219. Chemistry shows sodium 141, potassium 3.6, chloride 106, carbon dioxide 35, anion gap of 3, BUN 31, creatinine 0.6, and troponin 0.03. CAT scan of the abdomen and pelvis on admission shows lower lobe infiltrate, a compression fracture at T11 and T4 and trace bilateral pleural effusion. The patient has also had a chest CT on admission, 03/24/2019 that revealed a small bibasilar infiltrate and peribronchial thickening, air bronchogram, and prominent interstitial marking. IMPRESSION: This is an 89-year-old demented patient with past medical history of dementia, chronic obstructive pulmonary disease, substernal goiter, and bilateral knee replacement, admitted with bilateral pneumonia and chronic obstructive pulmonary disease exacerbation. The patient went into atrial fibrillation. RECOMMENDATIONS: We will transfer to Telemetry. We will start Cardizem drip, monitor the heart rate. We will give a low-dose beta keerthi. We will review if the patient has any recent echo was done, if no echo was done, we will get echo to assess LV function. Further recommendations will depend upon the hospital course. We will follow with you. We will get a lipid profile, TSH, and hemoglobin A1c. Thank you Dr. Clark for providing us the opportunity in taking care of the patient, Guillermina Verdugo. Heidy Valdez MD
--- NOTE | 2019-03-29 08:14 | PN ---
DATE: 03/28/2019 SUBJECTIVE: The patient is seen earlier today in room 561 early this morning, in no acute distress, nontoxic. No fevers or chills. PHYSICAL EXAMINATION: VITAL SIGNS: Temperature is 98, blood pressure of 107/60, respiratory rate of 18, heart rate of 78. HEENT: Unremarkable. NECK: Supple. LUNGS: Have decreased breath sounds. HEART: Normal S1, S2. ABDOMEN: Soft. LABORATORY EXAMINATION: Reveals a white count of 10,000, hemoglobin of 11, platelets of 219. Chemistries are noted. Creatinine of 0.6. Procalcitonin 2.07. Urinalysis is noted. Serology is reviewed. Microbiology reveals cultures are negative. Review of orders reveals the patient to have urine Legionella was never collected. The patient is on p.o. doxycycline and ceftriaxone. Dr. Clark's note is reviewed. The patient had new onset of atrial fibrillation with rapid ventricular response, transferred to second floor. communication report is reviewed. ASSESSMENT AND PLAN: An 89-year-old female, admitted with sepsis and community-acquired pneumonia which is resolving. May complete with oral doxycycline. Currently day #4 of ceftriaxone and doxycycline. We will be discontinuing ceftriaxone next 24 hours and complete five to seven days of doxycycline. Kip Mahmood MD
--- NOTE | 2019-03-29 08:34 | PN ---
DATE: 03/28/2019 SUBJECTIVE: The patient appears comfortable this morning. She is not short of breath at rest. PHYSICAL EXAMINATION: VITALS: Last temperature recorded is 98, pulse is 88, respiratory rate 18, blood pressure 124/74, oxygen saturation on room air 93-97%. HEENT: Normocephalic, atraumatic. No JVD. CARDIOVASCULAR: Systolic ejection murmur at the lower left sternal border. No S3 gallop. LUNGS: Decreased breath sounds with minimal crackles at the bases. No rhonchi. No wheezing. EXTREMITIES: No clubbing, cyanosis, or edema. Calves are nontender to palpation. GASTROINTESTINAL: Abdomen is soft, nontender, and nondistended. Bowel sounds are positive. SKIN: No acute rash. NEUROLOGIC: Exam limited at the present time. IMPRESSION: 1. Community-acquired pneumonia. 2. Chronic obstructive pulmonary disease. 3. Asthma. 4. Mild anemia. PLAN: The patient appears comfortable this morning. She is not short of breath at rest. She does state to feeling better overall. On physical exam, there is no significant bronchospasm noted. In addition, there is no significant alveolar arterial gradient. I will continue the current nebulizer treatments for now. The patient remains on antibiotic therapy - as per Infectious Disease. There are no temperatures noted. The leukocytosis has completely resolved. Clinical status of the patient is significantly improved - compared to the initial presentation. I will discuss the above with Dr. Clark. Yoan Trujillo MD MTDD
--- NOTE | 2019-03-29 09:23 | CP.PCM.PN ---
Subjective - Date & Time of Evaluation Date of Evaluation: 03/29/19 Time of Evaluation: 06:20 - Subjective Subjective: Awake, alert, no distress Reason for consultation and follow up: Cardiac evaluation of rapid atrial fibrillation Seen and examined by me and Dr. Valdez Objective - Vital Signs/Intake and Output Vital Signs (last 24 hours): Temp Pulse Resp BP Pulse Ox 98.0 F 76 19 153/77 H 96 03/29/19 06:00 03/29/19 06:00 03/29/19 06:00 03/29/19 06:00 03/29/19 06:00 Intake and Output: 03/29/19 03/29/19 06:59 18:59 Intake Total 540 Balance 540 - Medications Medications: Current Medications Alprazolam (Xanax) 0.5 mg PO DAILY [facility] Last Admin: 03/28/19 09:39 Dose: 0.5 mg Arformoterol Tartrate (Brovana) 15 mcg IH [id number] [facility] Ascorbic Acid (Vitamin C Liq) 100 mg PO DAILY [facility] Last Admin: 03/28/19 12:14 Dose: Not Given Aspirin (Aspirin Chewable) 81 mg PO DAILY [facility] Last Admin: 03/28/19 09:39 Dose: 81 mg Atenolol (Tenormin) 25 mg PO BID [facility] Last Admin: 03/28/19 17:25 Dose: 25 mg Budesonide (Pulmicort Respules) 0.5 mg IH [id number] [facility] Divalproex Sodium (Depakote Sprinkles) 125 mg PO BID [facility]; Protocol Last Admin: 03/28/19 17:21 Dose: 125 mg Donepezil HCl (Aricept) 10 mg PO HS [facility] Last Admin: 03/28/19 21:18 Dose: 10 mg Doxycycline Hyclate (Doryx) 100 mg PO Q12 [facility]; Protocol Stop: 03/30/19 22:01 Last Admin: 03/28/19 21:18 Dose: 100 mg Enoxaparin Sodium (Lovenox) 70 mg SC Q12H [facility]; Protocol Last Admin: 03/28/19 22:24 Dose: 70 mg Escitalopram Oxalate (Lexapro) 10 mg PO DAILY [facility] Last Admin: 03/28/19 09:40 Dose: 10 mg Guaifenesin/Dextromethorphan (Robitussin Dm) 10 ml PO Q4H PRN PRN Reason: Cough Last Admin: 03/29/19 00:06 Dose: 10 ml Ceftriaxone Sodium (Rocephin 1 Gram Ivpb) 1 gm in 100 mls @ 100 mls/hr IVPB DAILY [facility]; Protocol Last Admin: 03/28/19 09:39 Dose: 100 mls/hr diltiaZEM IVPB 100mg in NS (Cardizem 100mg In Ns) 100 mls @ 5 mls/hr IV .Q20H PRN; Protocol PRN Reason: TITRATE PER MD ORDER Last Titration: 03/28/19 14:12 Dose: 0 mg/hr, 0 mls/hr Levalbuterol HCl (Xopenex) 0.63 mg IH [id number] PRN PRN Reason: Shortness of Breath Pantoprazole Sodium (Protonix Susp) 40 mg PO 0600 [facility] Last Admin: 03/28/19 05:14 Dose: 40 mg Polyethylene Glycol (Miralax) 17 gm PO BID [facility] Last Admin: 03/28/19 17:23 Dose: 17 gm Quetiapine Fumarate (Seroquel) 25 mg PO BID [facility]; Protocol Last Admin: 03/28/19 17:23 Dose: 25 mg Tramadol HCl (Ultram) 50 mg PO DAILY [facility] Last Admin: 03/28/19 09:40 Dose: 50 mg Tramadol HCl (Ultram) 50 mg PO HS [facility] Last Admin: 03/28/19 21:18 Dose: 50 mg Trazodone HCl (Desyrel) 50 mg PO HS [facility] Last Admin: 03/28/19 21:19 Dose: 50 mg Verapamil HCl (Verapamil Inj) 2.5 mg IVP Q6H PRN PRN Reason: for heartrate >140 - Labs Labs: 03/29/19 06:30 03/29/19 06:30 - Constitutional Appears: Non-toxic, No Acute Distress - Head Exam Head Exam: NORMAL INSPECTION, NORMOCEPHALIC - Eye Exam Eye Exam: Normal appearance Pupil Exam: NORMAL ACCOMODATION - ENT Exam ENT Exam: Mucous Membranes Moist, Normal Exam - Respiratory Exam Respiratory Exam: Decreased Breath Sounds, Clear to Ausculation Bilateral, NORMAL BREATHING PATTERN - Cardiovascular Exam Cardiovascular Exam: REGULAR RHYTHM, +S1, +S2 - GI/Abdominal Exam GI & Abdominal Exam: Soft, Normal Bowel Sounds - Extremities Exam Extremities Exam: Full ROM, Normal Capillary Refill - Neurological Exam Neurological Exam: Alert, Awake - Psychiatric Exam Psychiatric exam: Normal Affect, Normal Mood - Skin Skin Exam: Dry, Normal Color, Warm Assessment and Plan - Assessment and Plan (Free Text) Assessment: An 89 year old female who came in to the ER due to worsening cough shortness of breath. 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 Admitted for pn eumonia and exacerbation of cOPD. Consult was called for rapid atrial fibrillation. Cardizem IV/drip given. Heart rate controlled now. Cardiac status stable. Plan: Echo to evaluate LV function No distress Heart rate controlled to Normal sinus rythm Continue Cardizem drip for now, if heart rate stable will switch to oral Blood pressure stable On ASA 81 mg daily,Tenormin 25 mg BID, Continue current treatment Continue current medications Continue IV antibiotics as ordered Will follow up Plan and treatment discussed with Dr. Valdez
--- NOTE | 2019-03-29 10:16 | CP.PCM.PN ---
<Cristhian Silver - Last Filed: 03/29/19 10:08> Subjective - Date & Time of Evaluation Date of Evaluation: 03/29/19 Time of Evaluation: 07:00 - Subjective Subjective: Cristhian Silver D.O. PGY-3, Internal Medicine Resident, Dr. Clark's Service, Progress Note 89-year-old [place] female with a past medical history of Alzheimer's dementia, asthma, COPD, GERD, substernal goiter, hyperlipidemia, osteoarthritis, osteoporosis, meningioma in the right parietal region, adrenal adenomas, and bilateral knee replacements who presents for complaints of cough, found to have pneumonia. Patient was seen and evaluated at bedside. Looks much better. Despite being minimally verbal, actually stated "I'm much better" Heart rate controlled. No Chest pain. Objective - Vital Signs/Intake and Output Vital Signs (last 24 hours): Temp Pulse Resp BP Pulse Ox 98.0 F 76 19 153/77 H 96 03/29/19 06:00 03/29/19 06:00 03/29/19 06:00 03/29/19 06:00 03/29/19 06:00 Intake and Output: 03/29/19 03/29/19 06:59 18:59 Intake Total 540 Balance 540 - Medications Medications: Current Medications Alprazolam (Xanax) 0.5 mg PO DAILY [facility] Last Admin: 03/28/19 09:39 Dose: 0.5 mg Arformoterol Tartrate (Brovana) 15 mcg IH [id number] [facility] Ascorbic Acid (Vitamin C Liq) 100 mg PO DAILY [facility] Last Admin: 03/28/19 12:14 Dose: Not Given Aspirin (Aspirin Chewable) 81 mg PO DAILY [facility] Last Admin: 03/28/19 09:39 Dose: 81 mg Atenolol (Tenormin) 25 mg PO BID [facility] Last Admin: 03/28/19 17:25 Dose: 25 mg Budesonide (Pulmicort Respules) 0.5 mg IH [id number] [facility] Divalproex Sodium (Depakote Sprinkles) 125 mg PO BID [facility]; Protocol Last Admin: 03/28/19 17:21 Dose: 125 mg Donepezil HCl (Aricept) 10 mg PO HS [facility] Last Admin: 03/28/19 21:18 Dose: 10 mg Doxycycline Hyclate (Doryx) 100 mg PO Q12 [facility]; Protocol Stop: 03/30/19 22:01 Last Admin: 03/28/19 21:18 Dose: 100 mg Enoxaparin Sodium (Lovenox) 70 mg SC Q12H [facility]; Protocol Last Admin: 03/28/19 22:24 Dose: 70 mg Escitalopram Oxalate (Lexapro) 10 mg PO DAILY [facility] Last Admin: 03/28/19 09:40 Dose: 10 mg Guaifenesin/Dextromethorphan (Robitussin Dm) 10 ml PO Q4H PRN PRN Reason: Cough Last Admin: 03/29/19 00:06 Dose: 10 ml Ceftriaxone Sodium (Rocephin 1 Gram Ivpb) 1 gm in 100 mls @ 100 mls/hr IVPB DA AILEEN [facility]; Protocol Last Admin: 03/28/19 09:39 Dose: 100 mls/hr diltiaZEM IVPB 100mg in NS (Cardizem 100mg In Ns) 100 mls @ 5 mls/hr IV .Q20H PRN; Protocol PRN Reason: TITRATE PER MD ORDER Last Titration: 03/28/19 14:12 Dose: 0 mg/hr, 0 mls/hr Levalbuterol HCl (Xopenex) 0.63 mg IH [id number] PRN PRN Reason: Shortness of Breath Pantoprazole Sodium (Protonix Susp) 40 mg PO 0600 [facility] Last Admin: 03/28/19 05:14 Dose: 40 mg Polyethylene Glycol (Miralax) 17 gm PO BID [facility] Last Admin: 03/28/19 17:23 Dose: 17 gm Quetiapine Fumarate (Seroquel) 25 mg PO BID [facility]; Protocol Last Admin: 03/28/19 17:23 Dose: 25 mg Tramadol HCl (Ultram) 50 mg PO DAILY [facility] Last Admin: 03/28/19 09:40 Dose: 50 mg Tramadol HCl (Ultram) 50 mg PO HS [facility] Last Admin: 03/28/19 21:18 Dose: 50 mg Trazodone HCl (Desyrel) 50 mg PO HS [facility] Last Admin: 03/28/19 21:19 Dose: 50 mg Verapamil HCl (Verapamil Inj) 2.5 mg IVP Q6H PRN PRN Reason: for heartrate >140 - Labs Labs: 03/29/19 06:30 03/29/19 06:30 - Constitutional Appears: elderly [place] female, pleasant - Head Exam Head Exam: ATRAUMATIC, NORMOCEPHALIC - Eye Exam Eye Exam: EOMI. absent: Scleral icterus - ENT Exam ENT Exam: Mucous Membranes Moist, Normal Oropharynx - Respiratory Exam Respiratory Exam: no rales or rhonchi - Cardiovascular Exam Cardiovascular Exam: Irregularly irregular rhythm, now normocardic, +S1, +S2. absent: Gallop, Rubs - GI/Abdominal Exam GI & Abdominal Exam: Normal Bowel Sounds, Soft. absent: Distended, Tenderness - Extremities Exam Extremities exam: Positive for: normal capillary refill. Negative for: calf tenderness, pedal edema - Neurological Exam Additional comments: awake, alert, follows simple commands, speaking more today - Skin Skin Exam: Dry, Warm Assessment and Plan - Assessment and Plan (Free Text) Assessment: 89-year-old [place] female with a past medical history of Alzheimer's dementia, asthma, COPD, GERD, substernal goiter, hyperlipidemia, osteoarthritis, osteoporosis, meningioma in the right parietal region, adrenal adenomas, and bilateral knee replacements who presents for complaints of cough, found to have sepsis from pneumonia. Plan: 1. Sepsis 2/2 CAP - improving 2. New onset atrial fibrillation with rapid ventricular response - now rate controlled 3. Alzheimer's dementia 4. Asthma/COPD 5. Osteoarthritis 6. GERD Heart rate has been controlled and patient is being switched from Cardizem drip to atenolol by cardiology. Patient now also off of heparin drip and on t herapeutic Lovenox. Cardiology recommendations were reviewed and appreciated. Patient to have an echocardiogram. We will continue with aspirin as well. For her sepsis patient is currently on ceftriaxone and doxycycline day 5 per ID recommendations. For her Alzheimer's disease patient currently continues on her Lexapro, donepezil, Depakote, Seroquel, trazodone, and alprazolam. Patient also being followed by pulmonary. The recommendations have also been reviewed and appreciated. Patient is currently on Brovana and Pulmicort. Her nebulizer treatments for her COPD have been switched to Xopenex. Continue tramadol for her OA. Continue protonix for her GERD. PT recommendations for subacute rehab pending input from the family. Clinically she is showing improvement. Patient was seen and examined and case was discussed with attending physician at length. <Deep Clark - Last Filed: 03/29/19 16:14> Objective - Vital Signs/Intake and Output Vital Signs (last 24 hours): Temp Pulse Resp BP Pulse Ox 98.0 F 89 19 126/83 96 03/29/19 06:00 03/29/19 14:00 03/29/19 06:00 03/29/19 10:55 03/29/19 06:00 Intake and Output: 03/29/19 03/29/19 06:59 18:59 Intake Total 540 Balance 540 - Medications Medications: Current Medications Alprazolam (Xanax) 0.5 mg PO DAILY [facility] Last Admin: 03/29/19 10:55 Dose: 0.5 mg Arformoterol Tartrate (Brovana) 15 mcg IH [id number] [facility] Last Admin: 03/29/19 11:16 Dose: 15 mcg Ascorbic Acid (Vitamin C Liq) 100 mg PO DAILY [facility] Last Admin: 03/29/19 15:06 Dose: 100 mg Aspirin (Aspirin Chewable) 81 mg PO DAILY [facility] Last Admin: 03/29/19 10:52 Dose: 81 mg Atenolol (Tenormin) 25 mg PO BID [facility] Last Admin: 03/29/19 10:55 Dose: 25 mg Budesonide (Pulmicort Respules) 0.5 mg IH [id number] [facility] Last Admin: 03/29/19 11:16 Dose: 0.5 mg Divalproex Sodium (Depakote Sprinkles) 125 mg PO BID [facility]; Protocol Last Admin: 03/29/19 10:55 Dose: 125 mg Donepezil HCl (Aricept) 10 mg PO HS [facility] Last Admin: 03/28/19 21:18 Dose: 10 mg Doxycycline Hyclate (Doryx) 100 mg PO Q12 [facility]; Protocol Stop: 03/30/19 22:01 Last Admin: 03/29/19 10:52 Dose: 100 mg Enoxaparin Sodium (Lovenox) 70 mg SC Q12H [facility]; Protocol Stop: 03/29/19 23:59 Last Admin: 03/29/19 10:56 Dose: 70 mg Enoxaparin Sodium (Lovenox) 30 mg SC DAILY [facility]; Protocol Escitalopram Oxalate (Lexapro) 10 mg PO DAILY [facility] Last Admin: 03/29/19 10:52 Dose: 10 mg Guaifenesin/Dextromethorphan (Robitussin Dm) 10 ml PO Q4H PRN PRN Reason: Cough Last Admin: 03/29/19 00:06 Dose: 10 ml Ceftriaxone Sodium (Rocephin 1 Gram Ivpb) 1 gm in 100 mls @ 100 mls/hr IVPB DAILY [facility]; Protocol Last Admin: 03/29/19 10:56 Dose: 100 mls/hr Levalbuterol HCl (Xopenex) 0.63 mg IH [id number] PRN PRN Reason: Shortness of Breath Pantoprazole Sodium (Protonix Susp) 40 mg PO 0600 [facility] Last Admin: 03/28/19 05:14 Dose: 40 mg Polyethylene Glycol (Miralax) 17 gm PO BID [facility] Last Admin: 03/29/19 10:56 Dose: Not Given Quetiapine Fumarate (Seroquel) 25 mg PO BID [facility]; Protocol Last Admin: 03/29/19 10:53 Dose: 25 mg Tramadol HCl (Ultram) 50 mg PO DAILY [facility] Last Admin: 03/29/19 10:58 Dose: Not Given Tramadol HCl (Ultram) 50 mg PO HS [facility] Last Admin: 03/28/19 21:18 Dose: 50 mg Trazodone HCl (Desyrel) 50 mg PO HS [facility] Last Admin: 03/28/19 21:19 Dose: 50 mg Verapamil HCl (Verapamil Inj) 2.5 mg IVP Q6H PRN PRN Reason: for heartrate >140 - Labs Labs: 03/29/19 06:30 03/29/19 06:30 Assessment and Plan - Assessment and Plan (Free Text) Plan: Pt seen and examined by me. I have reviewed the note of the medical lab specialist and I agree with it. I have discussed the assessment and plan with the resident. I have reviewed the medications and the last labs. Pt with sepsis due to pneumonia. She is improving. He had A fib which was new onset. She is being followed by Dr Valdez- cardiology. Her rate is controlled. Sheis on Xanax for her agitation. She will continue with Brovana and Pulmicort for COPD. She will need ZOFIA. On Protonix for GERD. On Lovenox
[2019-03-29] MEDS: Divalproex 125 mg EC Sprinkle Cap PO SCH ×2 (10:55→18:09)
[2019-03-29] MEDS: cefTRIAXone 1 gm 1 GM/100 ML BAG IVPB SCH (10:56)
[2019-03-29] MEDS: POLYETHYLENE GLYCOL 3350 17 GM/Dose PACKET PO SCH ×2 (10:56→18:25)
[2019-03-29] MEDS: Enoxaparin 80 mg Syringe SC SCH ×2 (10:56→21:21)
[2019-03-29] MEDS: Budesonide 0.5 mg/2 ml Inhal Susp UD IH SCH ×2 (11:16→20:04)
[2019-03-29] MEDS: Arformoterol 15 mcg/2 ml Inh Sol IH SCH ×2 (11:16→20:04)
--- NOTE | 2019-03-29 11:20 | CP.PCM.PCO ---
Physician Communication Note - Physician Communication Note Physician Communication Note: pt seen&examined, trx to tele for rapid afib, s/p iv cardizem Additional Comments - Additional Comments Additional Comments: discuss pt with monalisa WICK ordered, recs for TCu. pt now RSR on tele, will follow cardiology recs.
--- NOTE | 2019-03-29 14:25 | CARD ---
APPROVED REPORT Date of service: 03/29/2019 EXAM: Two-dimensional and M-mode echocardiogram with Doppler and color Doppler. INDICATION Atrial Fibrillation 2D DIMENSIONS Left Atrium (2D)4.7 (1.6-4.0cm)IVSd1.1 (0.7-1.1cm) LVDd3.4 (3.9-5.9cm)PWd1.2 (0.7-1.1cm) LVDs2.5 (2.5-4.0cm)FS (%) 27.9 % LVEF (%)55.2 (>50%) M-Mode DIMENSIONS Aortic Root3.30 (2.2-3.7cm)Aortic Cusp Exc.1.60 (1.5-2.0cm) Aortic Valve AoV Peak Fluwigds613.0cm/sAoV VTI36.2cmAO Peak GR.16mmHg LVOT Peak Qhsfrhzn359.0cm/sLVOT VTI26.50cmAO Mean GR.9mmHg AI P 1/2 [id number] Mitral Valve MV E Vnodzrwn32.7cm/sMV A Zcayzfns42.2cm/sE/A ratio0.9 TDI Lateral E' Peak V4.78cm/sMedial E' Peak V6.14cm/sE/Lateral E'17.3 E/Medial E'13.5 Pulmonary Valve PV Peak Qdmbbzby41.0cm/sPV Peak Grad.2mmHg Tricuspid Valve TR Peak Ramgjmei567xa/sRAP NNBOBKTC53pbTsPW Peak Gr.36mmHg FYKA69grPe LEFT VENTRICLE The left ventricle is normal size. There is borderline to mild concentric left ventricular hypertrophy. The left ventricular function is normal.EF-55% There is normal LV segmental wall motion. Transmitral Doppler flow pattern is Grade III-reversible restrictive diastolic dysfunction. No left ventricle thrombus noted on this study. There is no ventricular septal defect visualized. There is no left ventricular aneurysm. There is no mass noted in the left ventricle. RIGHT VENTRICLE The right ventricle is normal size. There is normal right ventricular wall thickness. The right ventricular systolic function is normal. ATRIA The left atrium is mildly dilated. The right atrium size is normal. The interatrial septum is intact with no evidence for an atrial septal defect. AORTIC VALVE The aortic valve is calcified but opens well. The aortic valve is moderately sclerotic. There is mild aortic regurgitation. Aortic Sclerosis Vs Mild There is no aortic valvular vegetation. MITRAL VALVE The mitral valve is thickened but opens well. Mitral annular calcification is mild to moderate. Mitral regurgitation is mild. There is no mitral valve stenosis. There is no evidence of mitral valve prolapse. TRICUSPID VALVE The tricuspid valve leaflets are thickened , but open well. There is mild tricuspid regurgitation.RVSP=-46 mmof Hg. There is no tricuspid valve stenosis. There is no tricuspid valve prolapse or vegetation. PULMONIC VALVE The pulmonic valve is not well visualized. There is no pulmonic valvular regurgitation. There is no pulmonic valvular stenosis. GREAT VESSELS The aortic root is normal in size. The ascending aorta is normal in size. The pulmonary artery is normal. The IVC is normal in size and collapses >50% with inspiration. PERICARDIAL EFFUSION There is no pleural effusion. There is no pericardial effusion. <Conclusion> The left ventricle is normal size. There is borderline to mild concentric left ventricular hypertrophy. The left ventricular function is normal.EF-55% There is mild aortic regurgitation. Aortic Sclerosis Vs Mild Mitral regurgitation is mild. There is mild tricuspid regurgitation.RVSP=-46 mmof Hg. The IVC is normal in size and collapses >50% with inspiration. There is no pericardial effusion.
[2019-03-29] MEDS: Ascorbic Acid 500 mg/5 ml Liq(50 ml) PO SCH (15:06)
--- NOTE | 2019-03-29 20:35 | CARD ---
APPROVED REPORT Date of service: 03/29/2019 EKG Measurement Heart [id number] <Conclusion> Normal sinus rhythm Low voltage standard leads NDSTT abnormalities Abnormal ECG
[2019-03-29] MEDS: Nystatin 100,000 Units/gm Topical Pow(15 gm) TOP SCH (22:00)
[2019-03-30 05:50] VITALS: RESP 18; O2SAT 95
[2019-03-30] MEDS: Pantoprazole 40 mg Susp UD PO SCH (06:23)
--- NOTE | 2019-03-30 06:53 | CP.PCM.PN ---
Subjective - Date & Time of Evaluation Date of Evaluation: 03/30/19 Time of Evaluation: 06:15 - Subjective Subjective: No distress, lying in bed Reason for consultation and follow up: Cardiac evaluation of rapid atrial fibrillation, converted to normal sinus rhythm, history of COPD,Alzheimer's dementia, asthma, GERD, substernal goiter, hyperlipidemia, Seen and examined by me and Dr. Valdez Objective - Vital Signs/Intake and Output Vital Signs (last 24 hours): Temp Pulse Resp BP Pulse Ox 97.8 F 61 18 115/80 95 03/30/19 05:48 03/30/19 05:48 03/30/19 05:48 03/30/19 05:48 03/30/19 05:48 Intake and Output: 03/29/19 03/30/19 18:59 06:59 Intake Total 700 Output Total 4 Balance 696 - Medications Medications: Current Medications Alprazolam (Xanax) 0.5 mg PO DAILY [facility] Last Admin: 03/29/19 10:55 Dose: 0.5 mg Arformoterol Tartrate (Brovana) 15 mcg IH [id number] [facility] Last Admin: 03/29/19 20:04 Dose: 15 mcg Ascorbic Acid (Vitamin C Liq) 100 mg PO DAILY [facility] Last Admin: 03/29/19 15:06 Dose: 100 mg Aspirin (Aspirin Chewable) 81 mg PO DAILY [facility] Last Admin: 03/29/19 10:52 Dose: 81 mg Atenolol (Tenormin) 25 mg PO BID [facility] Last Admin: 03/29/19 18:09 Dose: 25 mg Budesonide (Pulmicort Respules) 0.5 mg IH [id number] [facility] Last Admin: 03/29/19 20:04 Dose: 0.5 mg Divalproex Sodium (Depakote Sprinkles) 125 mg PO BID [facility]; Protocol Last Admin: 03/29/19 18:09 Dose: 125 mg Donepezil HCl (Aricept) 10 mg PO HS [facility] Last Admin: 03/29/19 21:27 Dose: 10 mg Doxycycline Hyclate (Doryx) 100 mg PO Q12 [facility]; Protocol Stop: 03/30/19 22:01 Last Admin: 03/29/19 21:23 Dose: 100 mg Enoxaparin Sodium (Lovenox) 30 mg SC DAILY [facility]; Protocol Escitalopram Oxalate (Lexapro) 10 mg PO DAILY [facility] Last Admin: 03/29/19 10:52 Dose: 10 mg Guaifenesin/Dextromethorphan (Robitussin Dm) 10 ml PO Q4H PRN PRN Reason: Cough Last Admin: 03/29/19 00:06 Dose: 10 ml Ceftriaxone Sodium (Rocephin 1 Gram Ivpb) 1 gm in 100 mls @ 100 mls/hr IVPB DAILY [facility]; Protocol Last Admin: 03/29/19 10:56 Dose: 100 mls/hr Levalbuterol HCl (Xopenex) 0.63 mg IH [id number] PRN PRN Reason: Shortness of Breath Nystatin (Nystop Topical Powder) 0 gm TOP Q12 [facility] Last Admin: 03/29/19 22:00 Dose: 1 appl Pantoprazole Sodium (Protonix Susp) 40 mg PO 0600 [facility] Last Admin: 03/30/19 06:23 Dose: 40 mg Polyethylene Glycol (Miralax) 17 gm PO BID [facility] Last Admin: 03/29/19 18:25 Dose: Not Given Quetiapine Fumarate (Seroquel) 25 mg PO BID [facility]; Protocol Last Admin: 03/29/19 18:11 Dose: 25 mg Tramadol HCl (Ultram) 50 mg PO DAILY [facility] Last Admin: 03/29/19 10:58 Dose: Not Given Tramadol HCl (Ultram) 50 mg PO HS [facility] Last Admin: 03/29/19 21:27 Dose: 50 mg Trazodone HCl (Desyrel) 50 mg PO HS [facility] Last Admin: 03/29/19 21:27 Dose: 50 mg Verapamil HCl (Verapamil Inj) 2.5 mg IVP Q6H PRN PRN Reason: for heartrate >140 - Labs Labs: 03/29/19 06:30 03/29/19 06:30 Assessment and Plan - Assessment and Plan (Free Text) Assessment: An 89 year old female who came in to the ER due to worsening cough shortness of breath. 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 Admitted for pneumonia and exacerbation of COPD. Consult was called for rapid atrial fibril lation. Digoxin IV and Cardizem IV/drip given. Heart rate controlled and converted to normal sinus rhythm. Cardiac status stable. Will discontinue telemetry. Discharge planning. Pulmonary on consult. On IV antibiotics per ID. Plan: No distress Heart rate controlled converted to Normal sinus rhythm Off Cardizem drip Blood pressure stable Cardiac status stable On ASA 81 mg daily,Tenormin 25 mg BID, Continue current treatment Continue current medications Continue IV antibiotics per ID Will discontinue telemetry. Discharge planning. P Pulmonary on consult. Will follow up Plan and treatment discussed with Dr. Valdez
[2019-03-30] MEDS: Budesonide 0.5 mg/2 ml Inhal Susp UD IH SCH (07:02)
[2019-03-30] MEDS: Arformoterol 15 mcg/2 ml Inh Sol IH SCH (07:02)
--- NOTE | 2019-03-30 09:21 | PN ---
DATE: 03/30/2019 SUBJECTIVE: The patient appears comfortable this morning. She is not short of breath at rest. PHYSICAL EXAMINATION: VITAL SIGNS: Temperature is 97.8, pulse 61, respirations 18, blood pressure 115/80. Oxygen saturation on nasal cannula 95%-98%. HEENT: Normocephalic, atraumatic. NECK: No JVD. CARDIOVASCULAR: Systolic ejection murmur at the lower left sternal border. No S3 gallop. LUNGS: Minimal crackles at the bases. Much less/very minimal rhonchi. No wheezing. EXTREMITIES: Mild edema, no cyanosis, no clubbing. Calves are nontender to palpation. GASTROINTESTINAL: Abdomen is soft, nontender, and nondistended. Bowel sounds are positive. SKIN: No acute rash. NEUROLOGIC: Limited at the present time. IMPRESSION: 1. Community-acquired pneumonia. 2. Chronic obstructive pulmonary disease. 3. Asthma. 4. Atrial fibrillation. 5. Mild anemia. PLAN: The patient appears quite comfortable this morning. She is not short of breath at rest. She is coughing much less. I did discuss the case with the night nurse at length. The night nurse stated the patient had an uneventful night. There are no significant pulmonary symptoms reported. On physical exam, there is certainly less bronchospasm noted. In addition, the alveolar arterial gradient is also less. I will continue with the current nebulizer treatments and inhaled steroids for now. The patient remains on antibiotic therapy - as per Infectious Disease. Input by Dr. Mahmood, is noted. There are no temperatures noted. The leukocytosis has completely resolved. Input by Cardiology is also noted. The patient is off the Cardizem drip. Clinical status of the patient is certainly improved - compared to a few days ago. However, given the above, the future status/prognosis for this elderly patient does remain guarded. The plan is for the patient to be transferred to the transitional unit, which I think will help a lot. I will discuss the above with Dr. Clark. Yoan Trujillo MD MTDNestor
[2019-03-30] MEDS: Divalproex 125 mg EC Sprinkle Cap PO SCH (09:35)
[2019-03-30] MEDS: POLYETHYLENE GLYCOL 3350 17 GM/Dose PACKET PO SCH (09:38)
[2019-03-30] MEDS: cefTRIAXone 1 gm 1 GM/100 ML BAG IVPB SCH (09:38)
[2019-03-30] MEDS: Nystatin 100,000 Units/gm Topical Pow(15 gm) TOP SCH (09:55)
[2019-03-30] MEDS ORDERED: Enoxaparin 30 mg Syringe SC SCH (10:00)
[2019-03-30] MEDS: Ascorbic Acid 500 mg/5 ml Liq(50 ml) PO SCH (12:14)
[2019-03-30 12:19] VITALS: BP 119/69; PULSE 67; TEMP 98.3
--- NOTE | 2019-03-30 12:51 | CP.PCM.DIS ---
<Cristhian Silver - Last Filed: 03/30/19 12:46> Provider - Provider Date of Admission: 03/24/19 10:31 Attending physician: Deep Clark MD Primary care physician: Moe Ellsworth MD Consults: 03/24/19 12:57 Consult [Physician Consult] Routine Comment: Consulting Provider: Yoan Trujillo Consulting Physician: Yoan Trujillo Reason for Consult: cough sepsis 03/24/19 15:26 Case Management Referral Routine Comment: LIVES HOME,WITH SON DAUGHTER IN LAW.HAS [id number] Physician Instructions: Reason For Exam: EVALUATION Reason for Referral: Open Developer Operator Eval Inpatient TARGETING ACQUISITION OFFICER Core Measures Referral Routine Comment: COPD EXACERBATION Physician Instructions: Reason For Exam: EVALUATION Transition In Care/Readmission Reduction Routine Comment: Physician Instructions: Reason For Exam: EVALUATION 03/24/19 15:35 Social Work Referral Routine Comment: DISCHARGE PLANNING WITH ASSISTANCE AT HOME Physician Instructions: Reason For Exam: EVALUATION 03/25/19 08:41 Consult [Physician Consult] Routine Comment: Consulting Provider: Kip Mahmood Consulting Physician: Kip Mahmood Reason for Consult: Elevated WBC 03/27/19 10:29 TCU [Evaluation for TRCU] Routine Comment: Physician Instructions: Reason For Exam: deconditioning 03/28/19 10:10 Consult [Physician Consult] Routine Comment: tachycardia, cp Consulting Provider: Leo Caraballo Consulting Physician: Leo Caraballo Reason for Consult: tachycardia, cp 03/28/19 11:21 Consult [Physician Consult] Routine Comment: Consulting Provider: Heidy Valdez Consulting Physician: Heidy Valdez Reason for Consult: new onset afib 03/29/19 12:01 TCU [Evaluation for TRCU] Routine Comment: Physician Instructions: Reason For Exam: new p.t recs Time Spent in preparation of Discharge (in minutes): 45 Diagnosis - Discharge Diagnosis (1) Sepsis Status: Acute (2) Pneumonia Status: Acute Hospital Course - Lab Results Lab Results: Micro Results 03/28/19 14:07 Naris MRSA Culture (Admit) - Final MRSA NOT DETECTED 03/24/19 09:45 Blood Blood Culture - Final NO GROWTH AFTER 5 DAYS 03/24/19 09:45 Blood Gram Stain - Final TEST NOT PERFORMED 03/24/19 10:15 Blood Blood Culture - Final NO GROWTH AFTER 5 DAYS 03/24/19 10:15 Blood Gram Stain - Final TEST NOT PERFORMED 03/24/19 19:00 Urine,Catheterized Urine Culture - Final No Growth (<1,000 CFU/ML) Most Recent Lab Values WBC 10.7 10^3/uL (4.5-11.0) 03/29/19 06:30 RBC 4.41 10^6/uL (3.5-6.1) 03/29/19 06:30 Hgb 13.6 g/dL (12.0-16.0) D 03/29/19 06:30 Hct 43.0 % (36.0-48.0) 03/29/19 06:30 MCV 97.5 fl (80.0-105.0) 03/29/19 06:30 MCH 30.8 pg (25.0-35.0) 03/29/19 06:30 MCHC 31.6 g/dl (31.0-37.0) 03/29/19 06:30 RDW 13.2 % (11.5-14.5) 03/29/19 06:30 Plt Count 257 10^3/uL (120.0-450.0) 03/29/19 06:30 MPV 9.6 fl (7.0-11.0) 03/29/19 06:30 Neut % (Auto) 60.0 % (50.0-68.0) 03/29/19 06:30 Lymph % (Auto) 29.3 % (22.0-35.0) 03/29/19 06:30 [place] % (Auto) 8.5 % (1.0-6.0) H 03/29/19 06:30 Eos % (Auto) 2.0 % (1.5-5.0) 03/29/19 06:30 Baso % (Auto) 0.2 % (0.0-3.0) 03/29/19 06:30 Lymph # (Auto) 3.1 (1.2-3.4) 03/29/19 06:30 [place] # (Auto) 0.9 (0.1-0.6) H 03/29/19 06:30 Eos # (Auto) 0.2 (0.0-0.7) 03/29/19 06:30 Baso # (Auto) 0.02 K/mm3 (0.0-2.0) 03/29/19 06:30 Absolute Neuts (auto) 6.39 (1.4-6.5) 03/29/19 06:30 pO2 49 mm/Hg (30-55) 03/24/19 09:43 VBG pH 7.44 (7.32-7.43) H 03/24/19 09:43 VBG pCO2 50.0 (40-60) 03/24/19 09:43 VBG HCO3 34.0 mmol/l (21-28) H 03/24/19 09:43 VBG Total CO2 35.5 mmol.L (22-28) H 03/24/19 09:43 VBG O2 Sat (Calc) 83.1 % (40-65) H 03/24/19 09:43 VBG Base Excess 8.3 mmol/L (0.0-2.0) H 03/24/19 09:43 VBG Potassium 5.7 mmol/L (3.6-5.2) H 03/24/19 09:43 Sodium 141.0 mmol/L (132-148) 03/24/19 09:43 Chloride 107.0 mmol/L (98-107) 03/24/19 09:43 Glucose 113 mg/dl (65-105) H 03/24/19 09:43 Lactate 1.0 mmol/L (0.7-2.1) 03/24/19 09:43 FiO2 21.0 % 03/24/19 09:43 Sodium 138 mmol/L (132-148) 03/29/19 06:30 Potassium 3.9 mmol/L (3.6-5.0) 03/29/19 06:30 Chloride 103 mmol/L (98-107) 03/29/19 06:30 Carbon Dioxide 33 mmol/L (21-33) 03/29/19 06:30 Anion Gap 6 (10-20) L 03/29/19 06:30 BUN 29 mg/dL (7-21) H 03/29/19 06:30 Creatinine 0.6 mg/dl (0.7-1.2) L 03/29/19 06:30 Est GFR ( Amer) > 60 03/29/19 06:30 Est GFR (Non-Af Amer) > 60 03/29/19 06:30 POC Glucose (mg/dL) 151 mg/dL (65-110) H 03/30/19 11:20 Random Glucose 87 mg/dL (70-110) 03/29/19 06:30 Hemoglobin A1c 6.4 % (4.2-6.5) 03/29/19 06:30 Calcium 9.0 mg/dL (8.4-10.5) 03/29/19 06:30 Phosphorus 3.4 mg/dL (2.5-4.5) 03/29/19 06:30 Magnesium 2.0 mg/dL (1.7-2.2) 03/29/19 06:30 Total Bilirubin 0.5 mg/dL (0.2-1.3) 03/29/19 06:30 AST 74 U/L (14-36) H D 03/29/19 06:30 ALT 72 U/L (7-56) H 03/29/19 06:30 Alkaline Phosphatase 87 U/L (38-126) 03/29/19 06:30 Lactate Dehydrogenase 539 U/L (333-699) 03/24/19 09:38 Total Creatine Kinase 73 U/L (35-230) 03/24/19 09:38 Troponin I 0.03 ng/mL D 03/28/19 10:15 NT-Pro-B Natriuret Pep 2690 pg/mL (0-450) H 03/24/19 09:38 Total Protein 6.4 g/dL (5.8-8.3) 03/29/19 06:30 Albumin 3.1 g/dL (3.0-4.8) 03/29/19 06:30 Globulin 3.4 gm/dL 03/29/19 06:30 Albumin/Globulin Ratio 0.9 (1.1-1.8) L 03/29/19 06:30 Triglycerides 128 mg/dL (35-160) 03/29/19 06:30 Cholesterol 224 mg/dL (130-200) H 03/29/19 06:30 LDL Cholesterol Direct 110 mg/dL (0-129) 03/29/19 06:30 HDL Cholesterol 50 mg/dL (29-60) 03/29/19 06:30 Procalcitonin 0.07 NG/ML (0.19-0.49) L 03/25/19 07:00 Free T4 2.09 ng/dL (0.78-2.19) 03/29/19 06:30 TSH 3rd Generation 1.49 mIU/mL (0.46-4.68) 03/29/19 06:30 Venous Blood Potassium 5.7 mmol/L (3.6-5.2) H 03/24/19 09:43 Urine Color Yellow (YELLOW) 03/24/19 11:57 Urine Appearance Clear (CLEAR) 03/24/19 11:57 Urine pH 6.0 (4.7-8.0) 03/24/19 11:57 Ur Specific [place] >= 1.030 (1.005-1.035) 03/24/19 11:57 Urine Protein 30 mg/dL (<30 mg/dL) H 03/24/19 11:57 Urine Glucose (UA) Negative mg/dL (NEGATIVE) 03/24/19 11:57 Urine Ketones 15 mg/dL (NEGATIVE) H 03/24/19 11:57 Urine Blood Negative (NEGATIVE) 03/24/19 11:57 Urine Nitrate Negative (NEGATIVE) 03/24/19 11:57 Urine Bilirubin Negative (NEGATIVE) 03/24/19 11:57 Urine Urobilinogen 1.0 E.U./dL (<1 E.U./dL) H 03/24/19 11:57 Ur Leukocyte Esterase Trace [place]anca/uL (NEGATIVE) H 03/24/19 11:57 Urine RBC 0 - 2 /hpf (0-2) 03/24/19 11:57 Urine WBC 2 - 5 /hpf (0-6) 03/24/19 11:57 Ur Epithelial Cells 3 - 4 /hpf (0-5) 03/24/19 11:57 Amorphous Sediment Few /hpf (NONE) 03/24/19 11:57 Urine Bacteria Many /hpf (NONE) 03/24/19 11:57 Coarse Granular Casts Trace /hpf (NONE) 03/24/19 11:57 Urine Other Uyeast /hpf 03/24/19 11:57 Influenza Typ A,B (EIA) Negative for flu a/b (NEGATIVE) 03/24/19 09:38 - Hospital Course Hospital Course: Cristhian Silver D.O. PGY-3, Internal Medicine Resident, Dr. 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 Patient was admitted for further management. Patient had a chest x-ray which showed no active disease however there was still a high index of suspicion for pneumonia so the patient had a chest CT which showed small bibasilar infiltrates with peribronchial thickening and air bronchograms and prominent interstitial markings. Patient was started on ceftriaxone and azithromycin for community-acquired pneumonia. Patient had decreased and then resolution of her leukocytosis. Patient was also started on breathing treatments Solu-Medrol. Patient was continued on her home medications for Alzheimer's dementia and anxiety. Patient was evaluated by infectious disease who was concerned because of the patient's high white count that there might be another etiology present. Patient underwent an abdomen and pelvis CT which showed age-indeterminate vertebral compression fractures of T11 and L4, prominent amount of retained colonic stool, and left lower lobe infiltrate with trace bilateral pleural effusions. Patient's antibiotic regimen was then ad justed and she was continued ceftriaxone on doxycycline. Patient had an episode of tachycardia and had an EKG which showed sinus tachycardia. However on reevaluation shortly after that EKG it was noted on monitor that patient was having variable heart rates. Repeat EKG was ordered as well as troponins. Troponins were negative but the new EKG showed that the patient was in atrial fibrillation with rapid ventricular response. Patient was started on heparin drip and Cardizem drip after a bolus dose and transferred to telemetry. Patient was evaluated by cardiology. Patient had an echocardiogram which revealed EF of 55%. Because patient converted back to normal sinus rhythm and was only in atrial fibrillation for a short amount of time soon after she was transitioned from heparin drip to Lovenox she is now being moved from therapeutic Lovenox to prophylactic dose. This was discussed with cardiology and their input was reviewed and appreciated. For her osteoarthritis she was well controlled throughout with her home tramadol. Patient was seen and evaluated by physical therapy and it was recommended that she undergo some type of therapy. Patient was evaluated for the transitional care unit and was accepted. Patient was seen and examined this morning and appears to be doing much better. Patient is minimally verbal but denies any chest pain when asked in her little shell tribe tongue of [place]. Appears overall comfortable. Patient will be transferred to the transitional care unit as she is medically optimized. Case was discussed with infectious disease and the recommendations were also reviewed and appreciated. Patient will complete 1 more day of IV antibiotics in the transitional care unit. Patient will also continue with physical therapy. Discussed case with case management. Discussed with nursing staff. All labs reviewed and appreciated. All imaging reviewed and appreciated. Will discuss with nursing staff in a TCU once patient arrives there. - Date & Time of H&P Date of H&P: 03/30/19 Time of H&P: 13:00 Discharge Exam - Head Exam Head Exam: NORMAL INSPECTION, NORMOCEPHALIC - Eye Exam Eye Exam: EOMI. absent: Scleral icterus - ENT Exam ENT Exam: Mucous Membranes Moist - Neck Exam Neck exam: Normal Inspection - Respiratory Exam Respiratory Exam: Clear to PA & Lateral. absent: Rales, Rhonchi, Wheezes - Cardiovascular Exam Cardiovascular Exam: +S1, +S2. absent: Gallop, Rubs - GI/Abdominal Exam GI & Abdominal Exam: Normal Bowel Sounds, Soft. absent: Distended, Tenderness - Extremities Exam Extremities exam: normal capillary refill - Neurological Exam Neurological exam: Alert - Skin Skin Exam: Dry, Warm Discharge Plan - Follow Up Plan Condition: GUARDED Disposition: TRANSF TO SNF Instructions: Community-Acquired Pneumonia, Adult (DC) Referrals: Moe Ellsworth MD [Primary Care Provider] - <Deep Clark - Last Filed: 03/30/19 17:25> Provider - Provider Date of Admission: 03/24/19 10:31 Attending physician: Deep Clark MD Primary care physician: Moe Ellsworth MD Consults: 03/24/19 12:57 Consult [Physician Consult] Routine Comment: Consulting Provider: Yoan Trujillo Consulting Physician: Yoan Trujillo Reason for Consult: cough sepsis 03/24/19 15:26 Case Management Referral Routine Comment: LIVES HOME,WITH SON DAUGHTER IN LAW.HAS [id number] Physician Instructions: Reason For Exam: EVALUATION Reason for Referral: Open Developer Operator Eval Inpatient TARGETING ACQUISITION OFFICER Core Measures Referral Routine Comment: COPD EXACERBATION Physician Instructions: Reason For Exam: EVALUATION Transition In Care/Readmission Reduction Routine Comment: Physician Instructions: Reason For Exam: EVALUATION 03/24/19 15:35 Social Work Referral Routine Comment: DISCHARGE PLANNING WITH ASSISTANCE AT HOME Physician Instructions: Reason For Exam: EVALUATION 03/25/19 08:41 Consult [Physician Consult] Routine Comment: Consulting Provider: Kip Mahmood Consulting Physician: Kip Mahmood Reason for Consult: Elevated WBC 03/27/19 10:29 TCU [Evaluation for TRCU] Routine Comment: Physician Instructions: Reason For Exam: deconditioning 03/28/19 10:10 Consult [Physician Consult] Routine Comment: tachycardia, cp Consulting Provider: Leo Caraballo Consulting Physician: Leo Caraballo Reason for Consult: tachycardia, cp 03/28/19 11:21 Consult [Physician Consult] Routine Comment: Consulting Provider: Heidy Valdez Consulting Physician: Heidy Valdez Reason for Consult: new onset afib 03/29/19 12:01 TCU [Evaluation for TRCU] Routine Comment: Physician Instructions: Reason For Exam: new p.t recs Hospital Course - Lab Results Lab Results: Micro Results 03/28/19 14:07 Naris MRSA Culture (Admit) - Final MRSA NOT DETECTED 03/24/19 09:45 Blood Blood Culture - Final NO GROWTH AFTER 5 DAYS 03/24/19 09:45 Blood Gram Stain - Final TEST NOT PERFORMED 03/24/19 10:15 Blood Blood Culture - Final NO GROWTH AFTER 5 DAYS 03/24/19 10:15 Blood Gram Stain - Final TEST NOT PERFORMED 03/24/19 19:00 Urine,Catheterized Urine Culture - Final No Growth (<1,000 CFU/ML) Most Recent Lab Values WBC 10.7 10^3/uL (4.5-11.0) 03/29/19 06:30 RBC 4.41 10^6/uL (3.5-6.1) 03/29/19 06:30 Hgb 13.6 g/dL (12.0-16.0) D 03/29/19 06:30 Hct 43.0 % (36.0-48.0) 03/29/19 06:30 MCV 97.5 fl (80.0-105.0) 03/29/19 06:30 MCH 30.8 pg (25.0-35.0) 03/29/19 06:30 MCHC 31.6 g/dl (31.0-37.0) 03/29/19 06:30 RDW 13.2 % (11.5-14.5) 03/29/19 06:30 Plt Count 257 10^3/uL (120.0-450.0) 03/29/19 06:30 MPV 9.6 fl (7.0-11.0) 03/29/19 06:30 Neut % (Auto) 60.0 % (50.0-68.0) 03/29/19 06:30 Lymph % (Auto) 29.3 % (22.0-35.0) 03/29/19 06:30 [place] % (Auto) 8.5 % (1.0-6.0) H 03/29/19 06:30 Eos % (Auto) 2.0 % (1.5-5.0) 03/29/19 06:30 Baso % (Auto) 0.2 % (0.0-3.0) 03/29/19 06:30 Lymph # (Auto) 3.1 (1.2-3.4) 03/29/19 06:30 [place] # (Auto) 0.9 (0.1-0.6) H 03/29/19 06:30 Eos # (Auto) 0.2 (0.0-0.7) 03/29/19 06:30 Baso # (Auto) 0.02 K/mm3 (0.0-2.0) 03/29/19 06:30 Absolute Neuts (auto) 6.39 (1.4-6.5) 03/29/19 06:30 pO2 49 mm/Hg (30-55) 03/24/19 09:43 VBG pH 7.44 (7.32-7.43) H 03/24/19 09:43 VBG pCO2 50.0 (40-60) 03/24/19 09:43 VBG HCO3 34.0 mmol/l (21-28) H 03/24/19 09:43 VBG Total CO2 35.5 mmol.L (22-28) H 03/24/19 09:43 VBG O2 Sat (Calc) 83.1 % (40-65) H 03/24/19 09:43 VBG Base Excess 8.3 mmol/L (0.0-2.0) H 03/24/19 09:43 VBG Potassium 5.7 mmol/L (3.6-5.2) H 03/24/19 09:43 Sodium 141.0 mmol/L (132-148) 03/24/19 09:43 Chloride 107.0 mmol/L (98-107) 03/24/19 09:43 Glucose 113 mg/dl (65-105) H 03/24/19 09:43 Lactate 1.0 mmol/L (0.7-2.1) 03/24/19 09:43 FiO2 21.0 % 03/24/19 09:43 Sodium 138 mmol/L (132-148) 03/29/19 06:30 Potassium 3.9 mmol/L (3.6-5.0) 03/29/19 06:30 Chloride 103 mmol/L (98-107) 03/29/19 06:30 Carbon Dioxide 33 mmol/L (21-33) 03/29/19 06:30 Anion Gap 6 (10-20) L 03/29/19 06:30 BUN 29 mg/dL (7-21) H 03/29/19 06:30 Creatinine 0.6 mg/dl (0.7-1.2) L 03/29/19 06:30 Est GFR ( Amer) > 60 03/29/19 06:30 Est GFR (Non-Af Amer) > 60 03/29/19 06:30 POC Glucose (mg/dL) 151 mg/dL (65-110) H 03/30/19 11:20 Random Glucose 87 mg/dL (70-110) 03/29/19 06:30 Hemoglobin A1c 6.4 % (4.2-6.5) 03/29/19 06:30 Calcium 9.0 mg/dL (8.4-10.5) 03/29/19 06:30 Phosphorus 3.4 mg/dL (2.5-4.5) 03/29/19 06:30 Magnesium 2.0 mg/dL (1.7-2.2) 03/29/19 06:30 Total Bilirubin 0.5 mg/dL (0.2-1.3) 03/29/19 06:30 AST 74 U/L (14-36) H D 03/29/19 06:30 ALT 72 U/L (7-56) H 03/29/19 06:30 Alkaline Phosphatase 87 U/L (38-126) 03/29/19 06:30 Lactate Dehydrogenase 539 U/L (333-699) 03/24/19 09:38 Total Creatine Kinase 73 U/L (35-230) 03/24/19 09:38 Troponin I 0.03 ng/mL D 03/28/19 10:15 NT-Pro-B Natriuret Pep 2690 pg/mL (0-450) H 03/24/19 09:38 Total Protein 6.4 g/dL (5.8-8.3) 03/29/19 06:30 Albumin 3.1 g/dL (3.0-4.8) 03/29/19 06:30 Globulin 3.4 gm/dL 03/29/19 06:30 Albumin/Globulin Ratio 0.9 (1.1-1.8) L 03/29/19 06:30 Triglycerides 128 mg/dL (35-160) 03/29/19 06:30 Cholesterol 224 mg/dL (130-200) H 03/29/19 06:30 LDL Cholesterol Direct 110 mg/dL (0-129) 03/29/19 06:30 HDL Cholesterol 50 mg/dL (29-60) 03/29/19 06:30 Procalcitonin 0.07 NG/ML (0.19-0.49) L 03/25/19 07:00 Free T4 2.09 ng/dL (0.78-2.19) 03/29/19 06:30 TSH 3rd Generation 1.49 mIU/mL (0.46-4.68) 03/29/19 06:30 Venous Blood Potassium 5.7 mmol/L (3.6-5.2) H 03/24/19 09:43 Urine Color Yellow (YELLOW) 03/24/19 11:57 Urine Appearance Clear (CLEAR) 03/24/19 11:57 Urine pH 6.0 (4.7-8.0) 03/24/19 11:57 Ur Specific [place] >= 1.030 (1.005-1.035) 03/24/19 11:57 Urine Protein 30 mg/dL (<30 mg/dL) H 03/24/19 11:57 Urine Glucose (UA) Negative mg/dL (NEGATIVE) 03/24/19 11:57 Urine Ketones 15 mg/dL (NEGATIVE) H 03/24/19 11:57 Urine Blood Negative (NEGATIVE) 03/24/19 11:57 Urine Nitrate Negative (NEGATIVE) 03/24/19 11:57 Urine Bilirubin Negative (NEGATIVE) 03/24/19 11:57 Urine Urobilinogen 1.0 E.U./dL (<1 E.U./dL) H 03/24/19 11:57 Ur Leukocyte Esterase Trace [place]/uL (NEGATIVE) H 03/24/19 11:57 Urine RBC 0 - 2 /hpf (0-2) 03/24/19 11:57 Urine WBC 2 - 5 /hpf (0-6) 03/24/19 11:57 Ur Epithelial Cells 3 - 4 /hpf (0-5) 03/24/19 11:57 Amorphous Sediment Few /hpf (NONE) 03/24/19 11:57 Urine Bacteria Many /hpf (NONE) 03/24/19 11:57 Coarse Granular Casts Trace /hpf (NONE) 03/24/19 11:57 Urine Other Uyeast /hpf 03/24/19 11:57 Influenza Typ A,B (EIA) Negative for flu a/b (NEGATIVE) 03/24/19 09:38 - Hospital Course Hospital Course: Patient was seen and examined by me. I have reviewed the note of the medical reception specialist and have gone over the plan of care. I agree with the note. I have reviewed the medications and the last labs.
--- NOTE | 2019-03-30 12:59 | PN ---
DATE: 03/30/2019 SUBJECTIVE: The patient is seen in bed, in no acute distress and nontoxic. She is doing much better. PHYSICAL EXAMINATION: VITAL SIGNS: Temperature is 97, blood pressure is 115/80 and respiratory rate of 18. HEENT: Unremarkable. NECK: Supple. LUNGS: Decreased breath sounds. HEART: Normal, S1 and S2. ABDOMEN: Soft and nontender. LABORATORY DATA: Reveals white count is 10,000, hemoglobin 13 and platelets is 257 . Nares is negative. Urine cultures negative. Blood cultures are negative. ASSESSMENT AND PLAN: This is an 89-year-old female admitted with sepsis, community-acquired pneumonia which is resolving. Today is day #6, 5 to 7 days of antibiotics. We will discontinue ceftriaxone and today is day #6 on doxycycline. We will complete 7 days of doxycycline p.o. Case discussed with the nursing staff who will discontinue the ceftriaxone after today's dose. Kip Mahmood MD
--- NOTE | 2019-03-30 19:48 | CARD ---
APPROVED REPORT Date of service: 03/30/2019 EKG Measurement Heart [id number] <Conclusion> Normal sinus rhythm Low voltage QRS Baseline artifact Borderline ECG
--- NOTE | 2019-03-31 00:20 | DS ---
HOSPITAL COURSE: The patient was seen and examined. I do agree with the note of the medical surgical tech. I was involved in the plan of care. The patient was admitted to the hospital because of sepsis. She had pneumonia, community acquired. She was placed on antibiotics. She improved in her symptoms. The patient is going to go to the Transitional Care Unit. She is tolerating her diet. The patient is afebrile. She was also placed on Solu-Medrol to help her breathe better. She had a CT scan that showed the pneumonia. The patient had an episode of atrial fibrillation, went back to sinus rhythm. She is not going to be on anticoagulation. She had an echocardiogram that showed her EF of 55%. I did speak to Dr. Ellsworth to give him an update on the patient's diagnosis and plan of care. The patient is going to be discharged to the Transitional Care Unit. CONDITION: Stable. ACTIVITY: Increase as tolerated. Deep Clark MD
== END 2019-03-30 12:56 | DRG 871 ==
LOC: ED 08:34 → ERH 10:31 → 5RSO 10:59 → ERH 11:02 → 5RNO 12:03 → 2RNO 03-28 11:51
PROVIDERS: ADMIT Internal Medicine Nephrology; ATTEND Internal Medicine Nephrology
PROC: 3E0F7GC Introduction of Other Therapeutic Substance into Respiratory Tract, Via Natural or Artificial Opening (ICD-10-PCS; principal; 2019-03-24)
DX: A41.9 Sepsis, unspecified organism (principal); J18.9 Pneumonia, unspecified organism; J44.0 Chronic obstructive pulmonary disease with (acute) lower respiratory infection; J44.1 Chronic obstructive pulmonary disease with (acute) exacerbation; M48.54XA Collapsed vertebra, not elsewhere classified, thoracic region, initial encounter for fracture; M48.56XA Collapsed vertebra, not elsewhere classified, lumbar region, initial encounter for fracture; G30.9 Alzheimer's disease, unspecified; F02.80 Dementia in other diseases classified elsewhere, unspecified severity, without behavioral disturbance, psychotic disturbance, mood disturbance, and anxiety; E04.9 Nontoxic goiter, unspecified; D35.00 Benign neoplasm of unspecified adrenal gland; M19.90 Unspecified osteoarthritis, unspecified site; F41.9 Anxiety disorder, unspecified; I48.91 Unspecified atrial fibrillation; E78.5 Hyperlipidemia, unspecified; M81.0 Age-related osteoporosis without current pathological fracture; F32.9 Major depressive disorder, single episode, unspecified; K59.00 Constipation, unspecified; K21.9 Gastro-esophageal reflux disease without esophagitis; Z86.011 Personal history of benign neoplasm of the brain; Z96.653 Presence of artificial knee joint, bilateral

== ENCOUNTER 2019-03-30 12:59 | Inpatient (IN) | payer OTHER, BC ==
[2019-03-30] MEDS ORDERED: Pneumococcal 23-Valent Vaccine IM ONE (16:13)
[2019-03-30 16:14] VITALS: BMI 26.6
[2019-03-30] MEDS: Divalproex 125 mg EC Sprinkle Cap PO SCH (18:33)
[2019-03-30] MEDS: POLYETHYLENE GLYCOL 3350 17 GM/Dose PACKET PO SCH (18:41)
[2019-03-30] MEDS ORDERED: Arformoterol 15 mcg/2 ml Inh Sol IH SCH (20:00)
[2019-03-30] MEDS: Arformoterol 15 mcg/2 ml Inh Sol IH SCH (20:47)
[2019-03-30] MEDS: Budesonide 0.5 mg/2 ml Inhal Susp UD IH SCH (20:47)
[2019-03-30] MEDS: Nystatin 100,000 Units/gm Topical Pow(15 gm) TOP SCH (21:44)
[2019-03-30] MEDS: guaiFENesin DM 200 mg-20 mg/10 ml UD PO PRN (21:48)
[2019-03-31] MEDS: Pantoprazole 40 mg Susp UD PO SCH (05:17)
[2019-03-31] MEDS: Enoxaparin 30 mg Syringe SC SCH (05:17)
[2019-03-31] MEDS: guaiFENesin DM 200 mg-20 mg/10 ml UD PO PRN ×2 (05:18→10:08)
[2019-03-31] MEDS: Budesonide 0.5 mg/2 ml Inhal Susp UD IH SCH ×2 (07:00→20:46)
[2019-03-31] MEDS: Arformoterol 15 mcg/2 ml Inh Sol IH SCH ×2 (07:02→20:46)
--- NOTE | 2019-03-31 08:00 | PN ---
DATE: 03/31/2019 SUBJECTIVE: The patient appears comfortable this morning. She is not short of breath at rest. PHYSICAL EXAMINATION: VITAL SIGNS: (Last noted in the computer): Temperature is 97.9, pulse 80, respirations 18, blood pressure 91/53. Oxygen saturation on nasal cannula - 94% to 95%. HEENT: Normocephalic, atraumatic. No JVD. CARDIOVASCULAR: Systolic ejection murmur at the lower left sternal border. No S3 gallop. LUNGS: Minimal crackles at the bases. Minimal/less rhonchi. No wheezing. EXTREMITIES: Mild edema, no cyanosis, no clubbing. Calves are nontender to palpation. GASTROINTESTINAL: Abdomen is soft, nontender, nondistended. Bowel sounds are positive. SKIN: No acute rash. NEUROLOGIC: Exam limited at the present time. IMPRESSION: 1. Community-acquired pneumonia. 2. Chronic obstructive pulmonary disease. 3. Asthma. 4. Atrial fibrillation. 5. Mild anemia. PLAN: The patient appears comfortable this morning. She is not short of breath at rest. I did discuss the case with the night nurse at length. The night nurse stated the patient had an occasional cough, but that her night was uneventful. On physical exam, there is certainly less bronchospasm noted. In addition, there is no significant alveolar arterial gradient. I will continue the current nebulizer treatments and inhaled steroids for now. I would continue with the antibiotic coverage as per Infectious Disease. There are no temperatures noted. The leukocytosis has completely resolved. Input by Cardiology is also noted. Clinical status of the patient is much improved - compared to the initial presentation. The patient is now on the transitional unit - where she will participate with physical therapy. I will discuss the above with Dr. Velasquez. Yoan Trujillo MD MTDD
--- NOTE | 2019-03-31 09:57 | CP.PCM.HP ---
<Cristhian Silver - Last Filed: 03/31/19 09:49> History of Present Illness - History of Present Illness History of Present Illness: Cristhian Silver D.O. PGY-3, Internal Medicine Resident, Dr. Clark's Service, H&P CC: deconditioning 89-year-old Turkish female with a past medical history of Alzheimer's dementia, asthma, COPD, GERD, substernal goiter, hyperlipidemia, osteoarthritis, osteoporosis, meningioma in the right parietal region, adrenal adenomas, and bilateral knee replacements who presented for complaints of cough, was found to have sepsis from CAP, was admitted and treated, and is now in the TCU for continued rehabilitation/physical therapy. Patient was seen and examined at bedside. Minimally verbal as usual. Looks comfortable. Present on Admission - Present on Admission Any Indicators Present on Admission: No Review of Systems - Review of Systems Systems not reviewed;Unavailable: Dementia Past Patient History - Infectious Disease Hx of Infectious Diseases: None - Past Social History Smoking Status: Never Smoked - CARDIAC Hx Cardiac Disorders: No - PULMONARY Hx Respiratory Disorders: Yes Hx Chronic Obstructive Pulmonary Disease (COPD): Yes - NEUROLOGICAL Hx Neurological Disorder: Yes Hx Alzheimer's Disease: Yes - HEENT Hx HEENT Problems: No - RENAL Hx Chronic Kidney Disease: No - ENDOCRINE/METABOLIC Hx Endocrine Disorders: No - HEMATOLOGICAL/ONCOLOGICAL Hx Blood Disorders: No - INTEGUMENTARY Hx Dermatological Problems: No - MUSCULOSKELETAL/RHEUMATOLOGICAL Hx Falls: Yes - GASTROINTESTINAL Hx Gastrointestinal Disorders: Yes - GENITOURINARY/GYNECOLOGICAL Hx Genitourinary Disorders: Yes (INCONTINENT) Hx Reproductive Disorders: No - PSYCHIATRIC Hx Psychophysiologic Disorder: Yes Hx Depression: Yes Hx Emotional Abuse: No Hx Physical Abuse: No Hx Substance Use: No - SURGICAL HISTORY Other/Comment: knee replacement. hip sx. lumbar sx - ANESTHESIA Hx Anesthesia: Yes Hx Anesthesia Reactions: No Hx Malignant Hyperthermia: No Meds Allergies/Adverse Reactions: Allergies Allergy/AdvReac Type Severity Reaction Status Date / Time No Known Allergies Allergy Verified 03/24/19 12:10 Physical Exam - Constitutional Additional comments: elderly Turkish female, pleasant - Head Exam Head Exam: ATRAUMATIC, NORMOCEPHALIC - Eye Exam Eye Exam: EOMI. absent: Scleral icterus - ENT Exam ENT Exam: Mucous Membranes Moist, Normal Oropharynx - Respiratory Exam Respiratory Exam: no rales or rhonchi - Cardiovascular Exam Cardiovascular Exam: regular rate and rhythm, +S1, +S2. absent: Gallop, Rubs - GI/Abdominal Exam GI & Abdominal Exam: Normal Bowel Sounds, Soft. absent: Distended, Tenderness - Extremities Exam Extremities exam: Positive for: normal capillary refill. Negative for: calf tenderness, pedal edema - Neurological Exam Additional comments: awake, alert, follows simple commands, minimally verbal - Skin Skin Exam: Dry, Warm Results - Vital Signs Recent Vital Signs: Last Vital Signs Temp 97.9 F 03/30/19 15:59 Pulse 80 03/30/19 20:51 Resp 18 03/30/19 15:59 BP 91/53 L 03/30/19 18:15 Pulse Ox 94 L 03/30/19 13:00 - Labs Labs: Laboratory Results - last 24 hr 03/30/19 16:43 POC Glucose (mg/dL) 152 H Assessment & Plan - Assessment and Plan (Free Text) Assessment: 89-year-old Turkish female with a past medical history of Alzheimer's dementia, asthma, COPD, GERD, substernal goiter, hyperlipidemia, osteoarthritis, osteoporosis, meningioma in the right parietal region, adrenal adenomas, and bilateral knee replacements who presented for complaints of cough, was found to have sepsis from CAP, was admitted and treated, and is now in the TCU for continued rehabilitation/physical therapy. Plan: 1. Deconditioning 2. Sepsis 2/2 CAP - resolved 3. Atrial fibrillation - resolved, back in NSR 4. Alzheimer's dementia 5. Asthma/COPD 6. Osteoarthritis 7. GERD 8. Skin rash Patient will be undergoing physical therapy in the transitional care unit. She was doing much better from a clinical standpoint. For her sepsis Secondary to community acquired pneumonia she has finished a course of doxycycline today and also finished her course of ceftriaxone. Her atrial fibrillation resolved, all recommendations from cardiology were reviewed and appreciated. Patient continues on atenolol 25 mg twice daily. Patient now to continue with prophylactic Lovenox only. For her Alzheimer's dementia and anxiety she continues on trazodone, continued pain, Lexapro, donepezil, Depakote, and alprazolam. From a respiratory standpoint she is doing much better and she has been followed by pulmonology. She continues on Brovana and Pulmicort. The recommendations of also been reviewed and appreciated. Satting well breathing comfortably on room air when examined. For osteoarthritis she continues on tramadol. For her GERD she continues on Protonix. For her skin rash she has had some improvement with the nystatin powder. We will continue to monitor the patient clinically during her rehabilitation. Patient was seen and examined and case was discussed at length with attending physician. - Date & Time Date: 03/31/19 Time: 07:00 <Deep Clark - Last Filed: 04/01/19 19:28> Results - Vital Signs Recent Vital Signs: Last Vital Signs Temp 97 F L 04/01/19 16:00 Pulse 65 04/01/19 17:27 Resp 18 04/01/19 16:00 BP 119/71 04/01/19 17:27 Pulse Ox 99 04/01/19 16:00 Assessment & Plan - Assessment and Plan (Free Text) Plan: Pt seen and examined by me. I have reviewed the note of the senior medical billing specialist and I agree with it. I have discussed the assessment and plan with the resident. I have reviewed the medications and the last labs. Pt on TCU for gait dysfunciton and deconditioning. Her medical records from the hospital was reviewed. PT is on Brovana and Pulmicort fo the COPD. She is on Tramadol for her OA. She is on Protonix for her GERD. She was admitted with community acquired pneumonia. She is on doxycycline for her pneumonia.
[2019-03-31] MEDS: POLYETHYLENE GLYCOL 3350 17 GM/Dose PACKET PO SCH ×2 (10:09→18:13)
[2019-03-31] MEDS: Divalproex 125 mg EC Sprinkle Cap PO SCH ×2 (10:09→18:13)
[2019-03-31] MEDS: Ascorbic Acid 500 mg/5 ml Liq(50 ml) PO SCH (10:10)
[2019-03-31] MEDS: Nystatin 100,000 Units/gm Topical Pow(15 gm) TOP SCH ×2 (10:12→21:31)
--- NOTE | 2019-04-01 04:34 | CON ---
DATE: 03/31/2019 REQUESTING PHYSICIAN: Dr. Clark. REASON FOR CONSULTATION: Recent atrial fibrillation. HISTORY OF PRESENT ILLNESS: This is an 89-year-old woman with a history of COPD, transferred from acute care to a transitional care for further management and rehabilitation efforts. She was recently admitted to [facility] with exacerbation of COPD. She was found to be tachycardic and noted to be in atrial fibrillation with rapid ventricular response. She was treated with IV diltiazem and in fairly short order, converted to sinus rhythm. She was maintained on telemetry and remained in sinus rhythm. She has significant dementia and answers minimally to questioning. PAST MEDICAL HISTORY: Her past history is notable for hyperlipidemia, bilateral knee replacement surgery, osteoarthritis, osteoporosis, right parietal meningioma, substernal goiter. MEDICATIONS: Her current medications include Aricept, aspirin, Brovana, Depakote, Desyrel, doxycycline, Lexapro, enoxaparin 30 mg daily, Protonix, Pulmicort, Seroquel, Tenormin 25 mg b.i.d. and Xopenex. ALLERGIES: NONE. SOCIAL HISTORY: She is . She lives at home with family. She does not smoke or drink. FAMILY HISTORY: Unobtainable at present. REVIEW OF SYSTEMS: A 12-point review of systems is also basically unobtainable. PHYSICAL EXAMINATION: GENERAL: She is a very elderly woman who appears comfortable at rest. VITAL SIGNS: Her blood pressure is 136/96 with a pulse of 80 and regular, respirations are 14. She is afebrile. HEENT: No JVD. CHEST: Few scattered rhonchi are heard. HEART: PMI displaced laterally with a soft systolic murmur in the left sternal border. ABDOMEN: Soft, nontender. Normoactive bowel sounds. EXTREMITIES: No clubbing, cyanosis, or edema. SKIN: Warm and dry. PSYCHIATRIC: Unable to fully assess. NEUROLOGIC: Moves all extremities. Does not follow commands completely. DIAGNOSTIC DATA: No blood work is currently available. IMPRESSION: 1. Recent paroxysmal atrial fibrillation, appears to be in sinus rhythm at the present time. 2. History of dementia. 3. Rest of problems as noted. RECOMMENDATIONS: At this time, aspirin and Tenormin therapy appears most appropriate. I would not advise long-term anticoagulation given her risk of falls and self-injury unless she has persistent or very frequent recurrent atrial fibrillation. Conservative management appears most reasonable at this time. Thank you for this consultation. I will be happy to follow along through her hospital course as needed. Leo Caraballo MD
[2019-04-01] MEDS: Pantoprazole 40 mg Susp UD PO SCH (05:48)
[2019-04-01] MEDS: Enoxaparin 30 mg Syringe SC SCH (05:48)
[2019-04-01] MEDS: guaiFENesin DM 200 mg-20 mg/10 ml UD PO PRN ×2 (05:53→21:19)
[2019-04-01] MEDS: Levalbuterol 0.63 MG/3 ML Inhal Soln UD IH PRN (07:27)
[2019-04-01] MEDS: Budesonide 0.5 mg/2 ml Inhal Susp UD IH SCH ×2 (07:27→20:23)
[2019-04-01] MEDS: Arformoterol 15 mcg/2 ml Inh Sol IH SCH ×2 (07:28→20:23)
[2019-04-01] MEDS: Divalproex 125 mg EC Sprinkle Cap PO SCH ×2 (09:42→17:25)
[2019-04-01] MEDS: POLYETHYLENE GLYCOL 3350 17 GM/Dose PACKET PO SCH ×2 (09:43→17:26)
[2019-04-01] MEDS: Clotrimazole/Betamethasone Cream(15 gm) TOP SCH (17:26)
[2019-04-01] MEDS: Nystatin 100,000 Units/gm Topical Pow(15 gm) TOP SCH ×2 (17:26→21:19)
[2019-04-01] MEDS: Ascorbic Acid 500 mg/5 ml Liq(50 ml) PO SCH (17:28)
--- NOTE | 2019-04-01 19:42 | CON ---
DATE OF CONSULTATION: 04/01/2019 The patient is in Room 318. The patient's daughter is at the bedside. CHIEF COMPLAINT: Weakness for several days. HISTORY OF PRESENT ILLNESS: This is an 89-year-old female with a history of Alzheimer's with a chronic obstructive lung disease, osteoarthritis, GERD, dyslipidemia, meningioma of the right parietal region, adrenal adenoma, who is admitted to acute care with sepsis secondary to community-acquired pneumonia. The patient is now in transitional care in Room 318. No fevers, no chills. No chest pain or shortness of breath. She has completed her antibiotic therapy. PAST MEDICAL HISTORY: Significant for adrenal adenoma, meningioma of the right parietal region, dyslipidemia, chronic obstructive lung disease, osteoarthritis, Alzheimer's dementia, and GERD. PAST SURGICAL HISTORY: Noncontributory. MEDICATIONS: Reviewed. ALLERGIES: THE PATIENT HAS NO KNOWN ALLERGIES. REVIEW OF SYSTEMS: A 12-point review of systems is performed. PHYSICAL EXAMINATION: VITAL SIGNS: Temperature is 98, blood pressure is 107/60, respiratory rate of 18. HEENT: Unremarkable. NECK: Supple. LUNGS: Decreased breath sounds. HEART: Normal S1, S2. ABDOMEN: Soft, nontender. LABORATORY EXAMINATION: White count of 10,000, hemoglobin of 13, platelets are noted. Chemistries are reviewed. Urinalysis is noted. Influenza negative. Microbiology reveals the blood culture is negative, urine culture is negative, and nares MRSA is negative. ASSESSMENT/PLAN: This is an 89-year-old female who was admitted with sepsis, community-acquired pneumonia, has had 7 days of antibiotics, currently now off of antibiotics and afebrile, active baseline. The patient is at risk for developing nosocomial infections. The patient does have a heparin lock. We have asked the nursing staff to remove the heparin lock to minimize development of new infection. Kip Mahmood MD
--- NOTE | 2019-04-01 22:33 | PN ---
DATE: 04/01/2019 SUBJECTIVE: The patient is 89-year-old, seen and examined, lying bed. Does not seem to be in any distress. [id number] at the bedside. Complaining of having bleeding from her groin sore. PAST MEDICAL HISTORY: Significant for COPD and atrial fibrillation, status post bilateral knee replacement, generalized osteoarthritis. PHYSICAL EXAMINATION: GENERAL: She looks weak and sick. VITAL SIGNS: Afebrile. Pulse 65, respirations 18, blood pressure 119/71. LUNGS: Bilateral fair air flow. Diffusely decreased breath sounds. HEART: S1 and S2 audible. ABDOMEN: Soft and nontender. No rebound. No guarding. NEUROLOGIC: She is awake and alert, able to communicate. SKIN: She has groin erythema and erythema of the buttock. LABORATORY DATA: Blood sugar is 152. ASSESSMENT: 1. Status post chronic obstructive pulmonary disease exacerbation. 2. Chronic obstructive pulmonary disease. 3. Atrial fibrillation. 4. Anemia. 5. Deconditioning and difficulty walking. 6. Community-acquired pneumonia, resolving. PLAN: Currently the patient is on aspirin 81 mg daily. She is on Brovana. She is on trazodone, Depakote, and Lexapro. She is on DVT prophylaxis. Start Nystatin powder. Continue on Tenormin for rate control. She is on tramadol for pain control. She is on nebulizer treatment. Continue physical therapy. We will follow up. Eugene Vargas MD
[2019-04-02] MEDS: Levalbuterol 0.63 MG/3 ML Inhal Soln UD IH PRN (00:43)
[2019-04-02] MEDS: Pantoprazole 40 mg Susp UD PO SCH (06:05)
[2019-04-02] MEDS: guaiFENesin DM 200 mg-20 mg/10 ml UD PO PRN ×3 (06:05→17:46)
[2019-04-02] MEDS: Enoxaparin 30 mg Syringe SC SCH (06:05)
[2019-04-02] MEDS: Budesonide 0.5 mg/2 ml Inhal Susp UD IH SCH ×2 (07:17→20:30)
[2019-04-02] MEDS: Arformoterol 15 mcg/2 ml Inh Sol IH SCH ×2 (07:17→20:30)
--- NOTE | 2019-04-02 08:01 | PN ---
DATE: 04/02/2019 SUBJECTIVE: The patient is seen lying in bed on telemetry. She is more awake and comfortable. She apparently sleeps throughout most of the day. CURRENT MEDICATIONS: Include Aricept, aspirin, Brovana, Depakote, Desyrel, Lexapro, Lovenox, Protonix, Pulmicort, Tenormin 25 mg twice a day, Xanax, and Xopenex. OBJECTIVE: GENERAL: She is a very elderly woman who is comfortable at the present time. VITAL SIGNS: Blood pressure is 120/70, pulse of 66 and regular, respirations are 14. She is afebrile. HEENT: No JVD noted. CHEST: Few scattered rhonchi heard. HEART: PMI normal position with a soft systolic murmur in the left sternal border. ABDOMEN: Soft, mildly obese, nontender with normoactive bowel sounds. EXTREMITIES: No edema. DIAGNOSTIC DATA: No blood work pending from this morning. IMPRESSION: 1. Recent paroxysmal atrial fibrillation likely exacerbated by respiratory insufficiency appears to remain in sinus rhythm now. 2. History of chronic obstructive pulmonary disease. 3. History of dementia. RECOMMENDATIONS: Her current management will continue for now. Full anticoagulation will not be employed at this time unless she has evidence of recurrent atrial fibrillation and her bleeding risk is felt to be low. Conservative management appears most appropriate at this time. I will follow along as needed. Leo Caraballo MD
[2019-04-02] MEDS: Divalproex 125 mg EC Sprinkle Cap PO SCH ×2 (09:02→17:46)
[2019-04-02] MEDS: POLYETHYLENE GLYCOL 3350 17 GM/Dose PACKET PO SCH ×2 (09:02→17:38)
[2019-04-02] MEDS: Clotrimazole/Betamethasone Cream(15 gm) TOP SCH ×2 (12:47→17:46)
[2019-04-02] MEDS: Nystatin 100,000 Units/gm Topical Pow(15 gm) TOP SCH ×2 (12:48→21:44)
[2019-04-02] MEDS: Ascorbic Acid 500 mg/5 ml Liq(50 ml) PO SCH (12:48)
--- NOTE | 2019-04-02 13:14 | PN ---
DATE: 04/02/2019 SUBJECTIVE: The patient is in bed, in no acute distress, nontoxic. PHYSICAL EXAMINATION: VITAL SIGNS: Temperature of 97, blood pressure is 115/57, respiratory rate 20, heart rate of 80. HEENT: Unremarkable. NECK: Supple. LUNGS: Have decreased breath sounds. HEART: Normal S1, S2. ABDOMEN: Soft. LABORATORY DATA: Reviewed. Review of orders reveals the patient is off of antibiotics. ASSESSMENT AND PLAN: This is an 89-year-old female seen in transitional care who was initially admitted with sepsis, community-acquired pneumonia, completed the antibiotics, currently now off of antibiotics and afebrile. The patient is at risk for developing nosocomial infections. Kip Mahmood MD
--- NOTE | 2019-04-02 14:07 | PN ---
DATE: 04/02/2019 SUBJECTIVE: The patient is an 89-year-old seen and examined while she was in gym. She has impaired hearing. She has mild dementia. PHYSICAL EXAMINATION: VITAL SIGNS: She is afebrile. Pulse 69, respirations 22, blood pressure 130/76. LUNGS: Bilateral fair air flow. No rhonchi or crackle. HEART: S1 and S2 audible. ABDOMEN: Soft, obese and nontender. No rebound. No guarding. NEUROLOGIC: The patient is awake and alert, able to communicate, but she has hard of hearing. EXTREMITIES: Bilateral leg no edema. ASSESSMENT: 1. Chronic obstructive pulmonary disease, exacerbation. 2. Chronic atrial fibrillation. 3. Chronic anemia. 4. Impaired hearing. 5. Resolving community acquired pneumonia. 6. Deconditioning and difficulty walking. PLAN: Currently the patient is on her usual medications including Aricept, aspirin, and Brovana. She is on Depakote, trazodone and Lexapro for her psych disorder. She is on DVT prophylaxis. She is on Protonix and antitussives. She is on Xanax 0.5 mg on daily basis, so we will continue current medications. Continue physical therapy. Dr. Clark will followup the patient. Eugene Vargas MD
[2019-04-03] MEDS: Enoxaparin 30 mg Syringe SC SCH (05:53)
[2019-04-03] MEDS: Pantoprazole 40 mg Susp UD PO SCH (06:08)
[2019-04-03] MEDS: guaiFENesin DM 200 mg-20 mg/10 ml UD PO PRN (06:12)
[2019-04-03 06:31] VITALS: RESP 19; TEMP 97.6; O2SAT 95
[2019-04-03] MEDS: Budesonide 0.5 mg/2 ml Inhal Susp UD IH SCH (07:03)
[2019-04-03] MEDS: Arformoterol 15 mcg/2 ml Inh Sol IH SCH (07:03)
--- NOTE | 2019-04-03 07:30 | PN ---
DATE: 04/03/2019 SUBJECTIVE: The patient appears comfortable this morning. She is not short of breath at rest. PHYSICAL EXAMINATION: VITAL SIGNS: Temperature is 97.6, pulse 67, respirations 19, blood pressure 122/79. Oxygen saturation on nasal cannula - 95%. HEENT: Normocephalic, atraumatic. No JVD. CARDIOVASCULAR: Systolic ejection murmur at the lower left sternal border. No S3 gallop. LUNGS: Minimal crackles at the bases. Very minimal/less rhonchi. No wheezing. EXTREMITIES: Mild edema, no cyanosis, no clubbing. Calves are nontender to palpation. GASTROINTESTINAL: Abdomen is soft, nontender, nondistended. Bowel sounds are positive. SKIN: No acute rash. NEUROLOGIC: Exam limited at the present time. IMPRESSION: 1. Community-acquired pneumonia. 2. Chronic obstructive pulmonary disease. 3. Asthma. 4. Atrial fibrillation. 5. Mild anemia. PLAN: The patient appears quite comfortable this morning. She is not short of breath at rest. I did discuss the case with the night nurse at length. The night nurse stated the patient had a very good night. On physical exam, her bronchospasm continues to resolve. In addition, the alveolar arterial gradient also continues to resolve. I will continue the current nebulizer treatments and inhaled steroids for now. Inputs by Cardiology and Infectious Disease are also noted. The patient is now off antibiotic therapy. Clinical status of the patient is significantly improved - compared to the initial presentation. However, given the above, the future status/prognosis for this elderly patient does remain guarded. I will discuss the above with the attending physician. Yoan Trujillo MD MTDD
--- NOTE | 2019-04-03 08:01 | CP.PCM.PN ---
Subjective - Date & Time of Evaluation Date of Evaluation: 04/03/19 Time of Evaluation: 08:00 - Subjective Subjective: PGY-[address] Clark Patient was seen and examined at bedside in TCU. Minimally verbal as usual. No acute distress. Objective - Vital Signs/Intake and Output Vital Signs (last 24 hours): Temp Pulse Resp BP Pulse Ox 97.6 F 67 19 122/79 95 04/03/19 06:00 04/03/19 06:00 04/03/19 06:00 04/03/19 06:00 04/03/19 06:00 - Medications Medications: Current Medications Alprazolam (Xanax) 0.5 mg PO DAILY [facility]; Protocol Last Admin: 04/02/19 12:47 Dose: 0.5 mg Arformoterol Tartrate (Brovana) 15 mcg IH [id number] [facility] Last Admin: 04/03/19 07:03 Dose: 15 mcg Ascorbic Acid (Vitamin C Liq) 100 mg PO DAILY [facility]; Protocol Last Admin: 04/02/19 12:48 Dose: 1 ml Aspirin (Aspirin Chewable) 81 mg PO 0800 [facility]; Protocol Last Admin: 04/02/19 07:49 Dose: 81 mg Atenolol (Tenormin) 25 mg PO BID [facility]; Protocol Last Admin: 04/02/19 17:45 Dose: 25 mg Betamethasone/Clotrimazole (Lotrisone) 0 gm TOP BID [facility] Last Admin: 04/02/19 17:46 Dose: 1 applic Budesonide (Pulmicort Respules) 0.5 mg IH [id number] [facility]; Protocol Last Admin: 04/03/19 07:03 Dose: 0.5 mg Divalproex Sodium (Depakote Sprinkles) 125 mg PO BID [facility]; Protocol Last Admin: 04/02/19 17:46 Dose: 125 mg Donepezil HCl (Aricept) 10 mg PO HS [facility]; Protocol Last Admin: 04/02/19 21:43 Dose: 10 mg Enoxaparin Sodium (Lovenox) 30 mg SC 0600 [facility]; Protocol Last Admin: 04/03/19 05:53 Dose: 30 mg Escitalopram Oxalate (Lexapro) 10 mg PO DAILY [facility]; Protocol Last Admin: 04/02/19 09:01 Dose: 10 mg Guaifenesin/Dextromethorphan (Robitussin Dm) 10 ml PO Q4H PRN; Protocol PRN Reason: Cough Last Admin: 04/03/19 06:12 Dose: 10 ml Levalbuterol HCl (Xopenex) 0.63 mg IH [id number] PRN; Protocol PRN Reason: Shortness of Breath Last Admin: 04/02/19 00:43 Dose: 0.63 mg Nystatin (Nystop Topical Powder) 0 gm TOP Q12 [facility]; Protocol Last Admin: 04/02/19 21:44 Dose: 1 appl Pantoprazole Sodium (Protonix Susp) 40 mg PO 0600 [facility]; Protocol Last Admin: 04/03/19 06:08 Dose: 40 mg Polyethylene Glycol (Miralax) 17 gm PO BID [facility]; Protocol Last Admin: 04/02/19 17:38 Dose: Not Given Quetiapine Fumarate (Seroquel) 25 mg PO BID [facility]; Protocol Last Admin: 04/02/19 17:46 Dose: 25 mg Tramadol HCl (Ultram) 50 mg PO DAILY [facility]; Protocol Last Admin: 04/02/19 09:01 Dose: 50 mg Tramadol HCl (Ultram) 50 mg PO HS [facility]; Protocol Last Admin: 04/02/19 21:46 Dose: 50 mg Trazodone HCl (Desyrel) 50 mg PO HS [facility]; Protocol Last Admin: 04/02/19 21:43 Dose: 50 mg Verapamil HCl (Verapamil Inj) 2.5 mg IVP Q6H PRN; Protocol PRN Reason: Heart Rate>140
--- NOTE | 2019-04-03 09:45 | CP.PCM.DIS ---
<Marianna Knowles - Last Filed: 04/03/19 11:52> Provider - Provider Date of Admission: 03/30/19 12:59 Attending physician: Deep Clark MD Primary care physician: Moe Ellsworth MD Consults: 03/30/19 13:20 Consult [Physician Consult] Routine Comment: Consulting Provider: Kip Mahmood Consulting Physician: Kip Mahmood Reason for Consult: wbc 03/30/19 13:23 Consult [Physician Consult] Routine Comment: Consulting Provider: Yoan Trujillo Consulting Physician: Yoan Trujillo Reason for Consult: cough 03/30/19 13:24 Consult [Physician Consult] Routine Comment: Consulting Provider: Heidy Valdez Consulting Physician: Heidy Valdez Reason for Consult: new onset afib Consult [Physician Consult] Routine Comment: Consulting Provider: Leo Caraballo Consulting Physician: Leo Caraballo Reason for Consult: afib 03/30/19 16:13 Inpatient CARE PROGRAM RESIDENT Core Measures Referral Routine Comment: COPD,PNA Physician Instructions: Reason For Exam: EVALUATION Social Work Referral Routine Comment: NEEDS ASSISTANCE AT HOME.HAS PRIVATE DUTY HH AIDE Physician Instructions: Reason For Exam: EVALUATION Transition In Care/Readmission Reduction Routine Comment: Physician Instructions: Reason For Exam: EVALUATION 03/30/19 16:15 Patient Advocate Consultation ONCE Comment: Physician Instructions: Reason For Exam: EVALUATION 03/30/19 16:42 Nursing Referral for Wound Care Routine Comment: IASD,MASD FOLDS OF SKIN. Physician Instructions: Reason For Exam: EVALUATION 03/31/19 09:05 Consult [Physician Consult] Routine Comment: Known to you, PAF Consulting Provider: Leo Caraballo Consulting Physician: Leo Caraballo Reason for Consult: Known to you PAF Time Spent in preparation of Discharge (in minutes): 45 Hospital Course - Lab Results Lab Results: Most Recent Lab Values POC Glucose (mg/dL) 152 mg/dL (65-110) H 03/30/19 16:43 - Hospital Course Hospital Course: PGY-[address] 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 Patient was later admitted to TCU for continued rehabilitation and physical therapy. ID continued to follow, patient completed course of antibiotics. Pulmonology was also following. Patient was was continued on breathing treatments, steroids were discontinued. She was seen by cardiology for continued management of paroxysmal a. fib and was continued on atenolol, anticoagulation was not started, cardiology recommended starting if patient has recurrent a. fo with low risk of bleeding. Patient was continued on her home medications for Alzheimer's dementia and anxiety. For her osteoarthritis she was well controlled throughout with her home tramadol. Patient was seen and examined this morning and appears well. Patient family was at bedside, they are agreeable to take patient home, discharge plan was discussed and all questions answered. Patient was started on atenolol, prescription was sent to pharmacy. Case was discussed with Dr. Clark Discharge Exam - Head Exam Head Exam: ATRAUMATIC, NORMAL INSPECTION, NORMOCEPHALIC - Eye Exam Eye Exam: EOMI, Normal appearance. absent: Conjunctival injection, Scleral icterus - Respiratory Exam Respiratory Exam: Clear to PA & Lateral, NORMAL BREATHING PATTERN, UNREMARKABLE. absent: Accessory Muscle Use, Chest Wall Tenderness, Decreased Breath Sounds, Rales, Rhonchi, Wheezes Additional comments: on breathing treatment - Cardiovascular Exam Cardiovascular Exam: REGULAR RHYTHM, RRR, +S1, +S2. absent: Bradycardia, Tachycardia, Diastolic murmur, Systolic Murmur - GI/Abdominal Exam GI & Abdominal Exam: Normal Bowel Sounds, Soft, Unremarkable. absent: Diminished Bowel Sounds, Distended, Firm, Guarding, Tenderness - Extremities Exam Extremities exam: normal inspection Additional comments: no pedal edema, no tenderness - Neurological Exam Neurological exam: Alert, CN II-XII Intact, Oriented x3 - Psychiatric Exam Psychiatric exam: Normal Affect, Normal Mood - Skin Skin Exam: Dry, Intact, Normal Color, Warm Discharge Plan - Discharge Medications Prescriptions: Atenolol [Tenormin] 25 mg PO BID #30 tab - Follow Up Plan Condition: GOOD Disposition: HOME/ ROUTINE Instructions: Pneumonia, Adult (DC), Sepsis, Adult (DC), Exacerbation of COPD (DC) Additional Instructions: Return to nearest ED if new or worsening symptoms. Patient was started on new medication atenolol. Please follow up with primary care doctor, Dr. Ellsworth in 3-5 days. Referrals: Moe Ellsworth MD [Primary Care Provider] - <Deep Clark - Last Filed: 04/03/19 16:43> Provider - Provider Date of Admission: 03/30/19 12:59 Attending physician: Deep Clark MD Primary care physician: Moe Ellsworth MD Consults: 03/30/19 13:20 Consult [Physician Consult] Routine Comment: Consulting Provider: Kip Mahmood Consulting Physician: Kip Mahmood Reason for Consult: wbc 03/30/19 13:23 Consult [Physician Consult] Routine Comment: Consulting Provider: Yoan Trujillo Consulting Physician: Yoan Trujillo Reason for Consult: cough 03/30/19 13:24 Consult [Physician Consult] Routine Comment: Consulting Provider: Heidy Valdez Consulting Physician: Heidy Valdez Reason for Consult: new onset afib Consult [Physician Consult] Routine Comment: Consulting Provider: Leo Caraballo Consulting Physician: Leo Caraballo Reason for Consult: afib 03/30/19 16:13 Inpatient CARE PROGRAM RESIDENT Core Measures Referral Routine Comment: COPD,PNA Physician Instructions: Reason For Exam: EVALUATION Social Work Referral Routine Comment: NEEDS ASSISTANCE AT HOME.HAS PRIVATE DUTY HH AIDE Physician Instructions: Reason For Exam: EVALUATION Transition In Care/Readmission Reduction Routine Comment: Physician Instructions: Reason For Exam: EVALUATION 03/30/19 16:15 Patient Advocate Consultation ONCE Comment: Physician Instructions: Reason For Exam: EVALUATION 03/30/19 16:42 Nursing Referral for Wound Care Routine Comment: IASD,MASD FOLDS OF SKIN. Physician Instructions: Reason For Exam: EVALUATION 03/31/19 09:05 Consult [Physician Consult] Routine Comment: Known to you, PAF Consulting Provider: Leo Caraballo Consulting Physician: Leo Caraballo Reason for Consult: Known to you PAF Hospital Course - Lab Results Lab Results: Most Recent Lab Values POC Glucose (mg/dL) 152 mg/dL (65-110) H 03/30/19 16:43 - Hospital Course Hospital Course: Pt seen and examined by me. I have reviewed the note of the medical care evaluation specialist and I agree with it. I have discussed the assessment and plan with the resident. I have reviewed the medications and the last labs.
[2019-04-03] MEDS: Divalproex 125 mg EC Sprinkle Cap PO SCH (10:45)
[2019-04-03] MEDS: POLYETHYLENE GLYCOL 3350 17 GM/Dose PACKET PO SCH (10:47)
[2019-04-03] MEDS: Clotrimazole/Betamethasone Cream(15 gm) TOP SCH (10:47)
[2019-04-03] MEDS: Nystatin 100,000 Units/gm Topical Pow(15 gm) TOP SCH (10:48)
[2019-04-03 10:52] VITALS: BP 108/64; PULSE 71
[2019-04-03] MEDS: Ascorbic Acid 500 mg/5 ml Liq(50 ml) PO SCH (10:52)
--- NOTE | 2019-04-03 12:19 | PN ---
DATE: 04/03/2019 SUBJECTIVE: The patient is in bed this morning in 318. No fevers or chills. PHYSICAL EXAMINATION: VITAL SIGNS: Temperature is 98, blood pressure is 120/70, respiratory rate 18. HEENT: Unremarkable. NECK: Supple. LUNGS: Decreased breath sounds. HEART: Normal S1, S2. ABDOMEN: Soft. LABORATORY DATA: Noted. MEDICATIONS: Review of orders reveals the patient is on no antibiotics and review of orders confirms no antibiotics ____. ASSESSMENT AND PLAN: An 89-year-old female in transitional care who was admitted with sepsis, community-acquired pneumonia, currently completed her antibiotic therapy and off antibiotics. The patient is at risk for developing nosocomial infections after Dr. Trujillo's note is reviewed. Kip Mahmood MD
--- NOTE | 2019-04-04 01:33 | DS ---
HISTORY OF PRESENT ILLNESS: The patient was seen and examined. I do agree with the note of the medical scientist. I was involved in the plan of care. The patient is being discharged from Transitional Care Unit. She is getting physical therapy. She is eating well. She has COPD that has been stable. She was admitted because of sepsis secondary to pneumonia and that has improved. She is going to get visiting nurses. She is on atenolol for her atrial fibrillation, this will be continued and this was sent to her pharmacy. Dr. Ellsworth is aware of the patient's discharge who is her primary care doctor. Deep Clark MD
== END 2019-04-03 13:46 | disposition home or self-care (01) | DRG 555 ==
LOC: TRCU 12:59
PROVIDERS: ADMIT Internal Medicine Nephrology; ATTEND Internal Medicine Nephrology
PROC: 3E03329 Introduction of Other Anti-infective into Peripheral Vein, Percutaneous Approach (ICD-10-PCS; 2019-03-30)
PROC: F07Z9FZ Gait Training/Functional Ambulation Treatment using Assistive, Adaptive, Supportive or Protective Equipment (ICD-10-PCS; principal; 2019-04-01)
PROC: F07Z5FZ Bed Mobility Treatment using Assistive, Adaptive, Supportive or Protective Equipment (ICD-10-PCS; 2019-04-01)
PROC: F07Z8FZ Transfer Training Treatment using Assistive, Adaptive, Supportive or Protective Equipment (ICD-10-PCS; 2019-04-01)
PROC: F07Z8YZ Transfer Training Treatment using Other Equipment (ICD-10-PCS; 2019-04-02)
PROC: F08Z1FZ Dressing Techniques Treatment using Assistive, Adaptive, Supportive or Protective Equipment (ICD-10-PCS; 2019-04-02)
DX: R26.2 Difficulty in walking, not elsewhere classified (principal); A41.9 Sepsis, unspecified organism; J18.9 Pneumonia, unspecified organism; J44.0 Chronic obstructive pulmonary disease with (acute) lower respiratory infection; Z79.2 Long term (current) use of antibiotics; G30.9 Alzheimer's disease, unspecified; F02.80 Dementia in other diseases classified elsewhere, unspecified severity, without behavioral disturbance, psychotic disturbance, mood disturbance, and anxiety; I48.0 Paroxysmal atrial fibrillation; I48.2 Chronic atrial fibrillation; D64.9 Anemia, unspecified; F41.9 Anxiety disorder, unspecified; E78.5 Hyperlipidemia, unspecified; M15.9 Polyosteoarthritis, unspecified; K21.9 Gastro-esophageal reflux disease without esophagitis; M81.0 Age-related osteoporosis without current pathological fracture; E04.9 Nontoxic goiter, unspecified; H91.90 Unspecified hearing loss, unspecified ear; Z96.653 Presence of artificial knee joint, bilateral; Z86.011 Personal history of benign neoplasm of the brain